=== PATIENT | female | born 1970 | race Caucasian/White ===

== ENCOUNTER → 2017-04-29 | Outpatient (CLI) | payer BC, OTHER ==
[~2017-04-29] VITALS: Ht 162.6 cm; Wt 87.3 kg
[~2017-04-29] MED LIST: ADDERALL 10 MG10 MG PO; AMITRIPTYLINE H10 M1 PO; AMPHETAMINE SAL10 MG PO; AMRIX30 MG PO; BACLOFEN; BACLOFEN 10MG T10 M1 PO; BACLOFEN 10MG T10 MG PO; BACLOFEN PO; CALCIUM; CALCIUM 1,0001 EACH PO; CAMBIA50 MG PO; CHLORZOXAZONE500 MG PO; CITRATE OF MAG296 ML PO; CLONAZEPAM 0.50.5 M1 PO; COLACE 100 MG100 MG PO; DICLOFENAC POTA50 MG PO; DOLOPHINE HCL10 MG OR; FLEXERIL PO; IMITREX 50 MG T50 M1 PO; IMITREX 50 MG T50 MG PO; LEVAQUIN 500 M500 M3 OR; METHADONE HCL 110 M1 PO; METHADONE HCL 110 MG PO; METHADOSE10 M1 PO; NORVASC5 MG PO; OXYCODONE HCL15 MG PO; OXYCONTIN CR 1010 M1 PO; PERCOCET 10-321 EACH PO; PERCOCET 5-3251 EACH PO; PERCOCET 7.5-31 EACH PO; PERCOCET PO; PHENERGAN 25 MG25 M1 PO; PHENERGAN50 MG RC; POTASSIUM20 PO; PREDNISONE 20 M20 M1 OR; REMERON15 MG PO; ROXICODONE15 M1 PO; TIZANIDINE HCL4 MG PO; VITAMIN D 5050000 I1 PO; VITAMIN D400 UNI1 PO
--- NOTE | ~2017-04-29 | HPC ---
[facility] [place] [address] PAIN MANAGEMENT CONSULTATION Name: SUNITALINZACHARIAH MARTINEZ Room #: REG Baldomero Starr#: [id number] Admission: 04/29/17 Attend Phys: Jorge Lee DO Discharge: Date of : 68 Report #: [id number] THIS REPORT FOR: //name// CC: [facility] physician/PCP Jorge Lee The patient is a 46-year-old female seen in consultation at the request of Dr. Jassi Callaway for assistance with management of chronic intractable pain. The patient had prior been seen in the pain clinic approximately 4 years ago. She returns to the pain clinic today noting multiple pain complaints, primary pain is neck, pain radiating to the posterior occiput and scapula. No specific radicular symptoms are noted. She also has ongoing pain in her back and legs. She states her left leg feels weak. She notes neck pain seems to be increased with any cervical range of motion. The patient has been managed with high dose opiates for nearly a decade. She currently takes methadone 10 mg 4 times a day, oxycodone 15 mg up to 5 tablets a day. She uses Flexeril 10 mg at bedtime, dextroamphetamine 10 mg 2 tablets in the morning, and clonazepam 0.5 b.i.d. Clonazepam is for chronic anxiety and the Adderall is for opiate-induced sedation. REVIEW OF SYSTEMS: A complete review of systems was gone over with the patient. She has chronic fibromyalgia by history. She has been worked up for some form of myotonia, multiple EMGs and labs eventually showed no specific etiology. She does complain of some right hip pain with ambulation. Remaining review of systems is noncontributory. PHYSICAL EXAMINATION: Reveals a 5 feet 4 inches, 192 pounds female, BMI is 33 kg/m2. Blood pressure 129/93, pulse is 121, respirations are 18, room air oxygen saturation 99%. Subjective pain score is 4 on a VAS with supratherapeutic opiate medication. Cervical range of motion is limited. She has trigger points in the splenius capitis bilateral, difficult to tell if this is specifically facet related pain or myofascial pain. Upper extremity strength is preserved. Heart is regular and rhythmical without murmur. Lungs are clear to auscultation. Abdomen shows a modestly endomorphic build. Rises from chair using armrest. She has pain with ambulation in the low back and right hip. Lower extremity strength is modestly diminished on the left leg compared to the right. Patellar and Achilles reflexes are symmetric. Mild tenderness in the low back over the SI and gluteus area. She does have significant pain with passive rotation of the right hip. Elis test is equivocal. DIAGNOSTIC STUDIES: There are no recent diagnostic studies available for evaluation at this time. ASSESSMENT: 1. Chronic pain syndrome requiring complex medication management in a patient [address] [address] PAIN MANAGEMENT CONSULTATION Name: ZACHARIAH MAO Room #: REG YAMILET Starr#: [id number] Admission: 04/29/17 Attend Phys: Jorge Lee DO Discharge: Date of : 68 Report #: [id number] on a supratherapeutic load of opiate. Her risk assessment score notes her to be low risk, functional assessment tool 37/70. Currently, the patient is taking roughly 265 mEq of morphine a day via her methadone 40 mg daily (roughly equivalent to 160 mg of morphine) and 75 mg of short-acting oxycodone roughly equivalent to another 105 mg of morphine equivalence. 2. Myofascial pain with trigger points in the splenius capitis. 3. Cervical spondylosis. 4. History of migraine headaches. 5. History of fibromyalgia. 6. Right hip pain, likely degenerative joint disease. 7. History of lumbar radiculopathy. 8. Opiate-induced hypersomnolence. RECOMMENDATION: Long discussion with the patient today about therapeutic options. I have been asked to take over management of her medication. I pointed out that she is at a supratherapeutic load of opiate and I suspect that she may have some issue with opiate-induced hyperalgesia and there may be some component of opiate habituation and tolerance at this point. I told her that we will continue the baseline methadone unchanged, but I would not write for the relatively higher dose of short-acting opiate, we will rotate from oxycodone 15 mg to Percocet 10/325, and limit 4 a day. I told her overall goal will be to wean off of all short acting opiates. Even at methadone 10 mg 4 times a day, she is still at a supratherapeutic load of opiate, we will try and wean this as able. This will be a slow course as she has been opiate habituated and tolerant for many years. I will somewhat reluctantly continue clonazepam 0.5 b.i.d. I have taken the liberty of writing for 60 tablets. I did tell the patient that this is not my area of expertise, but typically benzodiazepines are highly addictive and in conjunction with opiates can be problematic. Strongly recommend that she see a psychiatrist for evaluation and assistance with management for chronic anxiety. Hopefully, she can find a non-benzodiazepine anxiolytic to take on a daily basis. Trigger point injections today. We will address bilateral splenius capitis muscle groups. If this affords good relief, we will have the patient continue with icing and stretching; if this affords only nominal relief, we will need to get a newer study of the cervical spine and consider cervical facet joint injections under fluoroscopy. Follow up in 30 days to reevaluate, we will plan to do a fluoroscopic-guided right hip joint injection at that time as well. We entered into an opiate consent to treat contract with the patient today. She understands her rights and responsibilities regarding this contract to include keeping her medication safeguarded, using opiates only from one provider and one [address] [address] PAIN MANAGEMENT CONSULTATION Name: ZACHARIAH MAO Room #: REG YAMILET Starr#: [id number] Admission: 04/29/17 Attend Phys: Jorge Lee DO Discharge: Date of : 68 Report #: [id number] pharmacy. We talked about opiate risks including sedation, constipation, overdose, habituation, tolerance and opiate-induced hyperalgesia. PROCEDURE: Trigger point times 2, bilateral splenius capitis. PROCEDURE NOTE: After written and informed consent was obtained, the patient was placed in the prone position. Skin overlying the splenius capitis bilaterally was cleansed with alcohol. A 25-gauge needle was used to inject a total of 20 mg of triamcinolone plus 4 mL of 0.5% preservative-free bupivacaine into and around the 2 discrete muscle groups. [place] were removed, the area was cleansed, Band-Aids applied. The patient was monitored for an appropriate period of time, discharged in good and stable condition. Thank you for allowing me to participate in the patient's care, I will keep you abreast of her progress. <ELECTRONICALLY SIGNED> By: Jorge Lee DO 05/05/17 0938 [id number] [id number] Jorge Lee DO /nt
[2017-04-29 10:08] VITALS: BP 129/93
== END | disposition home or self-care (01) ==
LOC: PAIN 07:04
DX: M79.1 Myalgia (principal); M47.812 Spondylosis without myelopathy or radiculopathy, cervical region; G43.909 Migraine, unspecified, not intractable, without status migrainosus; M79.7 Fibromyalgia; M54.16 Radiculopathy, lumbar region; F11.982 Opioid use, unspecified with opioid-induced sleep disorder

== ENCOUNTER → 2017-06-02 | Outpatient (CLI) | payer BC, OTHER ==
[~2017-06-02] VITALS: Ht 162.6 cm; Wt 86.9 kg
[~2017-06-02] MED LIST changes: -CAMBIA50 MG PO; -DICLOFENAC POTA50 MG PO; -NORVASC5 MG PO; -PERCOCET 5-3251 EACH PO; -PERCOCET PO
--- NOTE | ~2017-06-02 | HPC ---
[facility] [place] [address] PAIN MANAGEMENT CONSULTATION Name: SUNITALINZACHARIAH MARTINEZ Room #: REG YAMILET Starr#: [id number] Admission: 06/02/17 Attend Phys: Jorge Lee DO Discharge: Date of : 68 Report #: [id number] THIS REPORT FOR: //name// CC: JESSICA physician/PCP Jorge Lee DATE OF SERVICE: 06/02/2017 The patient is a 46-year-old female whose care we recently resumed. She was seen on 04/29/2017. She had been diagnosed with chronic pain syndrome requiring complex medication management, component of fibromyalgia, cervical spondylosis, chronic headaches, and lumbar radiculopathy. On 04/29/2017, we did some trigger point injections, continued patient on methadone 10 mg q.i.d., decreased oxycodone from 15 mg four a day to Percocet 10/325 four a day. Continued clonazepam 0.5 mg b.i.d. and strongly recommend she find a psychiatrist to continue with that medication as well as her Adderall 10 mg 2 tablets daily. I did also continue Flexeril 10 mg 1-2 at bedtime for leg spasm. She returns to Pain Clinic today noting no dramatic changes were noted with the lowering of Percocet from 15 to 10. Does still rates her pain a 4 on a VAS. Primarily at night, pain is in the legs. It is chronic concern. She does note that all of her 6 children have similar symptoms of idiopathic leg spasm and aching. The patient herself notes that when she was a child, she was initially diagnosed with juvenile rheumatoid arthritis as a preteen. 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 She works at [employer] in [facility]. She is working specifically with [employer]. She states that if she continues to be active, pain seems to be a little less bothersome. PHYSICAL EXAMINATION: Today does show a 46-year-old female, BMI is 32.9 kg/m2, blood pressure is quite elevated today 169/106, pulse 120, respirations 18. We reviewed the fact that she had been in the ER about 8 months ago, in 09/2016 at [facility] for chest pain, was found to be quite hypertensive, though this resolved quickly and all diagnostic studies were negative. She was not placed on any hypertensive medications. Last visit, blood pressure is 129/93, though she was tachycardic at 121. Otherwise, she is alert and oriented to person, place and time, judged to be a reasonable historian. Rises from chair using armrest. Diffuse axial back pain. No discrete trigger points noted. Gait is tandem. Lower extremity strength is generally symmetric. We reviewed the fact that opiate medications are being used to provide analgesia adequate to support activities of daily living, not attempting to achieve a [address] [address] PAIN MANAGEMENT CONSULTATION Name: MILTONZACHARIAH CHEW Vonnie Room #: REG YAMILET Starr#: [id number] Admission: 06/02/17 Attend Phys: Jorge Lee DO Discharge: Date of : 68 Report #: [id number] specific pain score on the 0-10 Visual Analog Scale. The current opiate medications are providing sufficient analgesia to allow the patient to participate in activities of daily living. The patient is not exhibiting any aberrant behavior suggestive of drug diversion. The patient is not having any adverse reactions to medications. The patient is not suffering from daytime somnolence or mental acuity changes. The patient is managing opiate-induced constipation with appropriate skxs-bgr-dyxuumy agents and dietary considerations. The patient was counseled on concern for caution with operating a motor vehicle while using opiate medications. A physical exam was performed and the patient's functional status was evaluated. All patients with back pain were advised against the bed rest greater than 4 days and were advised to return to normal activities. Pain score assessment was noted and the treatment plan was reviewed with the patient. All current medications, both prescribed and OTC were reviewed and reconciled on the electronic medical record. Tobacco screening was accomplished and smoking cessation was advised when indicated. BMI was noted and diet/exercise modification was recommended for all patients following outside normal parameters. I reviewed with the patient today their responsibilities to safeguard prescription medications, reviewed their responsibility to utilize medications only as prescribed by the physician. They are to seek and receive pain medications only from 1 physician group ( [facility]). They are to use 1 pharmacy and keep the clinic informed if they change pharmacies. Their responsibilities include making followup visits in a timely fashion and to avoid abrupt discontinuation of medication usage. Their responsibilities further include bringing their medications (bottles from the pharmacy with residual pills) to the visit for possible confirmation of pill counts and the patient understands it is their responsibility to submit to random drug screens to ensure both that the medications prescribed are present, and that no other controlled substances are present. All prescriptions provided today were generated electronically. ASSESSMENT: Axial back pain, chronic pain syndrome requiring complex medication management, myofascial pain by history. RECOMMENDATIONS: We will continue to wean opiate analgesics. We will decrease from Percocet 10/325 to 7.5/325 today. Continue methadone unchanged at 10 mg 4 times a day. Our plan will be to decrease the Percocet 5/325 at next visit for 1 month and then decrease methadone to 10 mg t.i.d. We may increase Percocet back to 7.5 or 10/325 up to 4 a day at that time with plans to subsequently wean back the prn Percocet to 5/325. The patient is discharged in good and stable condition today. Follow up in 1 month. Again, methadone continued unchanged, Percocet decreased from 10/325 to [facility] [address] [place] [address] PAIN MANAGEMENT CONSULTATION Name: ZACHARIAH MAO Room #: REG [facility]#: [id number] Admission: 06/02/17 Attend Phys: Jorge Lee DO Discharge: Date of : 68 Report #: [id number] 7.5/325. I did continue clonazepam and Adderall and strongly encouraged the patient to follow up with psychiatrist. Given hypertension, I told her to check her blood pressure tomorrow. If it remains elevated, she will need to follow up with it generalist. She does not have a GP presently and she absolutely needs to find one. If, however, blood pressure remained elevated, she will either need to see a Walk-In Clinic or come to an Acute Care Clinic. <ELECTRONICALLY SIGNED> By: Jorge Lee DO 06/06/17 0822 [id number] [id number] Jorge Lee DO /nt
[2017-06-02 12:57] VITALS: BP 169/106
== END ==
LOC: PAIN 07:23
DX: G89.29 Other chronic pain (principal); M54.9 Dorsalgia, unspecified; Z79.899 Other long term (current) drug therapy

== ENCOUNTER → 2017-06-30 | Outpatient (CLI) | payer BC, OTHER ==
[~2017-06-30] VITALS: Ht 162.6 cm; Wt 88.7 kg
[~2017-06-30] MED LIST changes: +NORVASC5 MG PO; +PERCOCET PO
--- NOTE | ~2017-06-30 | HPC ---
[facility] [place] [address] PAIN MANAGEMENT CONSULTATION Name: ZACHARIAH MAO Room #: REG YAMILET Starr#: [id number] Admission: 06/30/17 Attend Phys: Jorge Lee DO Discharge: Date of : 68 Report #: [id number] THIS REPORT FOR: //name// CC: CAPRICE Lee HISTORY OF PRESENT ILLNESS: The patient is a 46-year-old female known to the pain clinic for some time, though she has somewhat been lost a followup for a number of years. She had prior been seen in the pain clinic back in 2013. She returns to the pain clinic most recently on 04/29/2017. She has chronic axial back pain, lumbar radiculopathy, myofascial pain, chronic headaches, chronic pain syndrome requiring complex medication management. She has been on opiate analgesics for decades. When she returned to our clinic, she was taking methadone 10 mg 4 times a day and oxycodone 15 mg up to 5 times a day. With this relatively supratherapeutic load of opiate, we have discussed a plan for weaning. She currently is down to methadone 10 mg 4 times a day (2 tablets b.i.d.). We rotated Percocet 10/325, max 4 a day and then last visit drop down to Percocet 7.5/325 four a day. The patient states that she has done well with this change. She rates her pain as 6 on a VAS. PHYSICAL EXAMINATION: GENERAL: Shows a pleasant 46-year-old female. VITAL SIGNS: BMI is 33.6 kilograms per meter squared. Blood pressure on EMR, pulse 105 and respirations 18. Subjective pain score is 6 on a VAS. MUSCULOSKELETAL: She describes pain, low back, bilateral legs. Notes weather changes and sitting seem to exacerbate pain. Rises from chair using armrest. Gait is tandem. Lower extremity strength is preserved. Diffuse tenderness across the low back. We reviewed the fact that opiate medications are being used to provide analgesia adequate to support activities of daily living, not attempting to achieve a specific pain score on the 0-10 Visual Analog Scale. The current opiate medications are providing sufficient analgesia to allow the patient to participate in activities of daily living. The patient is not exhibiting any aberrant behavior suggestive of drug diversion. The patient is not having any adverse reactions to medications. The patient is not suffering from daytime somnolence or mental acuity changes. The patient is managing opiate-induced constipation with appropriate jfus-qzo-xguyrgq agents and dietary considerations. The patient was counseled on concern for caution with operating a motor vehicle while using opiate medications. A physical exam was performed and the patient's functional status was evaluated. All patients with back pain were advised against the bed rest greater than 4 days and were advised to return to normal activities. Pain score assessment was noted and the treatment plan was reviewed with the patient. All current medications, both prescribed and OTC were reviewed and reconciled on the electronic medical record. Tobacco screening was accomplished and smoking [address] [address] PAIN MANAGEMENT CONSULTATION Name: ZACHARIAH MAO Room #: REG YAMILET Starr#: [id number] Admission: 06/30/17 Attend Phys: Jorge Lee DO Discharge: Date of : 68 Report #: [id number] cessation was advised when indicated. BMI was noted and diet/exercise modification was recommended for all patients following outside normal parameters. I reviewed with the patient today their responsibilities to safeguard prescription medications, reviewed their responsibility to utilize medications only as prescribed by the physician. They are to seek and receive pain medications only from 1 physician group ( [facility]). They are to use 1 pharmacy and keep the clinic informed if they change pharmacies. Their responsibilities include making followup visits in a timely fashion and to avoid abrupt discontinuation of medication usage. Their responsibilities further include bringing their medications (bottles from the pharmacy with residual pills) to the visit for possible confirmation of pill counts and the patient understands it is their responsibility to submit to random drug screens to ensure both that the medications prescribed are present, and that no other controlled substances are present. All prescriptions provided today were generated electronically. The patient's medication list is reconciled today. She is hypertensive and takes amlodipine. Adderall and clonazepam are prescribed by her psychiatrist. ASSESSMENT: Chronic axial back pain, myofascial pain, chronic pain syndrome with frequent headaches, requiring complex medication management. RECOMMENDATION: Continue methadone unchanged 10 mg 4 a day, we will decrease Percocet from 7.5-5/325 4 a day. I have taken the liberty of writing for 2 months of current medication. I have renewed her Flexeril, Adderall and clonazepam. She knows she needs to follow up with psychiatrist to continue those agents. We will follow up in 1 month for reevaluation. We will likely try and decrease methadone to t.i.d. I did discuss with the patient that I am leaving practice and she will need to find another health care provider. Prior, Dr. Jassi Callaway had managed her medication. May discuss going back to him or see if we can find another treating pain physician in her healthcare network. Discharged in good and stable condition. <ELECTRONICALLY SIGNED> By: Jorge Lee DO 07/04/17 0711 1619 0025 Jorge Lee DO /matthew
[2017-06-30 13:43] VITALS: BP 143/92
== END ==
LOC: PAIN 05:52
DX: G89.4 Chronic pain syndrome (principal); M54.9 Dorsalgia, unspecified; R51 Headache; Z79.899 Other long term (current) drug therapy

== ENCOUNTER → 2017-07-28 | Outpatient (CLI) | payer BC, OTHER ==
[~2017-07-28] VITALS: Ht 162.6 cm; Wt 89.4 kg
[~2017-07-28] MED LIST changes: +PERCOCET 5-3251 EACH PO
--- NOTE | ~2017-07-28 | HPC ---
[facility] [place] [address] PAIN MANAGEMENT CONSULTATION Name: ZACHARIAH MAO Room #: REG Baldomero Starr#: [id number] Admission: 07/28/17 Attend Phys: Jorge Lee DO Discharge: Date of : 68 Report #: [id number] THIS REPORT FOR: //name// CC: [employer] MERCHANT Physician staff Jorge Lee DATE OF SERVICE: 07/28/2017 The patient is a 46-year-old female, prior seen in the Pain Clinic back in 2013, somewhat lost to follow up. She returned to the Pain Clinic in April of this year. She had been titrated up to fairly high dose narcotic agents for chronic pain issues including lumbar radiculopathy without surgical intervention, chronic low back pain, component of idiopathic myalgias lower extremities. The patient was taking roughly equivalent of 270 mg morphine equivalents daily via methadone 10 mg 4 a day and oxycodone 15 mg 5 a day. Over the last couple of months, we have gradually weaned to Percocet 10 and then Percocet 7.5 and most recently, Percocet 5/325 four a day, decreasing overall opiate load to 30 mg oxycodone with 40 mg of methadone, equivalent to 205 mg of morphine equivalents. She returns to the Pain Clinic today. States she is having more muscle aches, myalgia. She does think that as weather is getting warmer that she does have a little better functional status. I started the patient on Adderall for some narcotic-induced somnolence with the hope of some analgesic synergy. As we have been weaning her opiate analgesics, I am hopeful we can wean the Adderall as well. I had strongly recommended she follow up with the psychiatrist for her anxiolytic agent (clonazepam) last visit. Unfortunately, she has yet to find a psychiatrist. She does return to the Pain Clinic today noting subjective pain score is 8 on a VAS, primarily low back and bilateral legs. She notes pain is exacerbated with weather changes and sitting. Gets some relief repositioning, heat, and medications. PHYSICAL EXAMINATION: Shows a 46-year-old female, BMI is 33.8 kg/m2. Blood pressure is modestly elevated (see EMR) pulse 116, respirations 20. She is alert and oriented to person, place and time, judged to be a reasonable historian. Rises from chair using armrest, modestly antalgic gait, diffuse tenderness across the low back. Lower extremity strength is symmetric, but modestly diminished. Medication list was reconciled. She does take amlodipine for hypertension along with Adderall, clonazepam, Flexeril, and the aforementioned Schedule II opiate analgesics methadone and Percocet 5/325. [address] [address] PAIN MANAGEMENT CONSULTATION Name: ZACHARIAH MAO Room #: REG YAMILET Starr#: [id number] Admission: 07/28/17 Attend Phys: Jorge Lee DO Discharge: Date of : 68 Report #: [id number] Long discussion with the patient today. In fact, she was seen for approximately 30 minutes in the Pain Clinic today. We would like to continue trying to wean opiate, we will gradually decrease methadone from 4, 10 mg tablets, to 3-1/2 this coming month and then 3 tablets a month (we will enable 100 tablets for 30 days to be released in 4 weeks with the goal of taking 1 tablet a day with a "rescue" fourth tablet every third day only if needed). I talked today about contacting the [facility] here at [facility] [address], Dr. Zenon Ray. Dr. Ray had made a presentation at the hospital. I am unsure if this patient can get into studies trialing cranial stimulation. She was given contact information for this possible therapeutic modality. ASSESSMENT: Chronic axial back pain, ill-defined diffuse myalgia, lumbar radiculopathy, chronic pain syndrome, headaches, requiring complex medication management. RECOMMENDATION: 1. Find a psychiatrist to manage clonazepam. 2. We will continue to wean Adderall. 3. Continue Percocet 5/325, 4 a day, unchanged. 4. Continue to wean methadone from 40 to 30 mg daily (total opiate load should decrease from 270 to 150 mg morphine equivalence from her initial presentation 04/29/2017). While we recognize this remains a supratherapeutic opiate load, it is about 55% of her presentation dose. We will likely want to keep her here for a month or 2 and see if we can continue wean, though as the colder weather comes on, she may require slight increase in overall pain medication. We will continue Flexeril unchanged 1-2 at bedtime. 5. Continue range of motion, stretching and walking. Thank you for allowing me to participate in the patient's care. She understands that I am leaving the practice area. We will have her follow up with one of the Pain physicians (Dr. Shayne Townsend does treat large number of patients with methadone. It does appear that she actually started seeing Dr. Lowell Baldwin back in 2006 or 2007. Either these providers would be reasonable). Discharged in good and stable condition after prolonged visit, greater than 50% of the 25+ minute visit was spent counseling the patient. <ELECTRONICALLY SIGNED> By: Jorge Lee DO 07/29/17 0727 [id number] Jorge Lee DO /matthew
[2017-07-28 13:27] VITALS: BP 163/98
== END ==
LOC: PAIN 06:58
DX: M54.16 Radiculopathy, lumbar region (principal); M54.5 Low back pain; G89.4 Chronic pain syndrome; R51 Headache; Z79.899 Other long term (current) drug therapy

== ENCOUNTER → 2017-12-02 | Outpatient (CLI) | payer BC, OTHER ==
[~2017-12-02] VITALS: Ht 162.6 cm; Wt 87.2 kg
[~2017-12-02] MED LIST changes: +CAMBIA50 MG PO; +DICLOFENAC POTA50 MG PO
--- NOTE | ~2017-12-02 | HPC ---
[facility] [place] [address] PAIN MANAGEMENT CONSULTATION Name: MILTONNAINAZACHARIAH Vonnie [facility]: [facility] [id number] Admission: 12/02/17 Attend Phys: Jaswinder Townsend MD Discharge: Date of : 68 Report #: [id number] THIS REPORT FOR: //name// CC: Jaswinder MERCHANT Physician staff DATE OF SERVICE: 12/02/2017 CHIEF COMPLAINT: Cambia samples were helpful. HISTORY OF PRESENT ILLNESS: The patient is a 47-year-old female who has been followed in the pain clinic. She has history of migraine headaches. 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 She continues to find that methadone is helpful. It helps with her pain. She is gainfully employed. Feels that without her medications, she would find this much more difficult assignment. Notes that the weather changes have continued to play havoc with her pain. She finds that the Adderall continues to be helpful. Feels that she is able to use her current medications at a level that she is able to think clearly and function well. Continues to work towards finding a psychiatrist. She rates her pain today as a 6/10. ALLERGIES: COMPAZINE. MEDICATIONS: Adderall 10 mg daily, Percocet 5/325 q.i.d. as needed, methadone 10 mg t.i.d., Flexeril 10 mg at bedtime, clonazepam 0.5 mg b.i.d., Norvasc 5 mg, and diclofenac potassium. PAIN CLINIC ASSESSMENT/PQRS: 1. Osteoarthritis. The patient is not being treated for osteoarthritis. The patient has been treated for juvenile arthritis. 2. Height 5 feet 4 inches, weight 192 pounds, BMI is 33. 3. Vital signs: Blood pressure 155/99, pulse 103, respiratory rate 14, room air saturation 99%. 4. Pain intensity 07/31. 5. Fall risk. The patient has not fallen in the last 3 months. 6. Blood thinner. The patient does not have a blood thinning medication. 7. Hypertension. The patient is being treated for hypertension. 8. Opioid therapy greater than 6 weeks. The patient receives all of her medications from one source, the pain clinic. 9. Risk assessment tool, low risk 2/3 for use of opioid. 10. Functional assessment tool . 11. Recreational drug use. The patient denies use of recreational drugs. 12. Tobacco: The patient has never smoked. 13. Alcohol: The patient denies [place] [address] PAIN MANAGEMENT CONSULTATION Name: ZACHARIAH MAO Room #: REG [facility]#: [id number] Admission: 12/02/17 Attend Phys: Jaswinder Townsend MD Discharge: Date of : 68 Report #: [id number] PHYSICAL EXAMINATION: GENERAL: The patient is a well-developed, well-nourished white female. Appears stated age. She is alert and oriented x 3. Speech is fluent/slow. HEENT: Normocephalic, atraumatic. Extraocular eye muscles are intact. Sclerae nonicteric. The patient is without complaints of photophobia today. She was at the last time because of a migraine headache. NECK: Without JVD or adenopathy. HEART: Regular rate, some tachycardia. LUNGS: Clear to auscultation without without rhonchi or rales. EXTREMITIES: Upper extremity muscle strength is judged to be 5/5 for the major muscle groups in the upper extremity. The patient is without significant scoliosis, kyphosis, or lordosis. Lower extremity muscle strength showed to be 5/5 in the major muscle groups. IMPRESSION: 1. Migraine headaches. 2. Low back pain with pain radiating down to the legs. 3. Juvenile arthritis with myalgias. 4. Complex medical management using opioid medications. RECOMMENDATIONS: We discussed treatment options with the patient, she felt that the diclofenac medication was somewhat helpful with her pain. We will provide the patient with diclofenac 5 mg 1 p.o. t.i.d. Hopefully, she will find that this is beneficial. She has also been given a renewal of her medications of methadone 10 mg 1 p.o. t.i.d., oxycodone 5/325 one p.o. q.i.d., cyclobenzaprine 10 mg b.i.d., Adderall 10 mg b.i.d., and clonazepam 0.5 mg b.i.d. The patient will call us if she has any problems with her medications. We would like to thank you for letting us participate in her care. We hope she continues to improve. <ELECTRONICALLY SIGNED> By: Jaswinder Townsend MD 12/05/17 1125 [id number] Jaswinder Townsend MD /matthew
[2017-12-02 11:15] VITALS: BP 155/99
== END ==
LOC: PAIN 07:06
DX: G43.909 Migraine, unspecified, not intractable, without status migrainosus (principal); M54.5 Low back pain; M08.90 Juvenile arthritis, unspecified, unspecified site; Z79.891 Long term (current) use of opiate analgesic

== ENCOUNTER → 2018-01-27 | Outpatient (CLI) | payer BC, OTHER ==
[~2018-01-27] VITALS: Ht 162.6 cm; Wt 87.5 kg
--- NOTE | ~2018-01-27 | HPC ---
[facility] [place] [address] PAIN MANAGEMENT CONSULTATION Name: MILTONNAINAZACHARIAH Room #: REG [facility] Matty#: [id number] Admission: 01/27/18 Attend Phys: Jaswinder Townsend MD Discharge: Date of : 68 Report #: [id number] THIS REPORT FOR: //name// CC: Jaswinder MERCHANT Physician staff DATE OF SERVICE: 01/27/2018 FOLLOWUP COMPLAINT: "Here for medication refill, things are going reasonably well, I am having pain in the low back and down the legs as well as headaches." FOLLOWUP HISTORY: The patient is a 47-year-old female who has been followed in the Pain Clinic. She has a history of migraine headaches. She has some idiopathic myalgias in her lower extremity. She continues to find that methadone is helpful. She continues to have pain and finds that this medication enables her to be gainfully employed and more comfortable. She is taking her medication as prescribed. She is not having any side effects. She notes that the changes in the weather continue to play havoc with her pain. She continues to use Adderall. This is helpful as well. She is thinking clearly with her medication. They are not causing any problems with her sensorium. She still is working to find a psychiatrist. She rates her pain as a 5/10 today. ALLERGIES: COMPAZINE. CURRENT MEDICATIONS: Adderall 10 mg, Percocet 5/325s one p.o. q.i.d., methadone 10 mg t.i.d., Flexeril 10 mg at bedtime, clonazepam 0.5 mg b.i.d., Norvasc 5 mg, diclofenac. PAIN CLINIC ASSESSMENT: 1. Osteoarthritis: The patient is not being treated for osteoarthritis. The patient has been treated for juvenile arthritis. 2. Height 5 feet 4 inches, weight 193 pounds, BMI is 33. 3. Vital signs: Blood pressure 151/92, pulse 93, respiratory rate 16, room air saturation 98%. 4. Pain intensity: 5/10. 5. Fall risk: The patient has not fallen in the last 3 months. 6. Blood thinner: The patient is not on a blood thinning medication. 7. Hypertension: The patient is being treated for hypertension. 8. Opioids: The patient receives her medication from one source, pain Clinic. 9. Risk assessment: Low/2 for opioid use. 10. Functional assessment tool: . 11. Recreational drug use: The patient denies use of recreational drugs. 12. Tobacco: The patient has never smoked. 13. Alcohol: The patient denies use of alcoholic beverages. [address] [address] PAIN MANAGEMENT CONSULTATION Name: MILTONNAINAZACHARIAH Vonnie Room #: REG CL Matty#: [id number] Admission: 01/27/18 Attend Phys: Jaswinder Townsend MD Discharge: Date of : 68 Report #: [id number] PHYSICAL EXAMINATION: GENERAL: The patient is a well-developed, well-nourished white female. She appears her stated age. She is alert and oriented x 3. Her speech is fluent, slightly slow. HEENT: Normocephalic, atraumatic. Extraocular eye muscles intact. Sclerae nonicteric. Mucous membranes are moist. She is not complaining of migraine headache at this juncture. NECK: Without JVD or adenopathy. HEART: Regular rate. Some tachycardia history. LUNGS: Clear to auscultation, without rhonchi or rales. EXTREMITIES: Upper extremity muscle strength is judged to be 5/5 for the major muscle groups. The patient is without significant scoliosis, kyphosis or lordosis. Lower extremity muscle strength is 5/5 without sensory changes. IMPRESSION: 1. History of migraine headaches. 2. Low back pain with pain which radiates down to legs. 3. Juvenile arthritis with myalgias. 4. Complex medical management, using opioid medications. RECOMMENDATIONS: We discussed treatment options with the patient. At this juncture, we will continue with diclofenac medication, which she finds helpful somewhat. We will also continue with her oxycodone 5/325s one p.o. q.i.d., cyclobenzaprine 10 mg b.i.d., Adderall 10 mg b.i.d., clonazepam 0.5 mg b.i.d. The patient's scripts have been written. She will call us if she has any concerns. We would like to thank you for letting us participate in her care. We hope she continues to improve. By: [id number] Jaswinder Townsend MD /matthew
[2018-01-27 11:09] VITALS: BP 151/92
== END ==
LOC: PAIN 10:29
DX: M54.5 Low back pain (principal); R51 Headache; G89.29 Other chronic pain; M79.604 Pain in right leg; M79.605 Pain in left leg; Z79.899 Other long term (current) drug therapy

== ENCOUNTER → 2018-03-31 | Outpatient (CLI) | payer BC, OTHER ==
[~2018-03-31] VITALS: Ht 162.6 cm; Wt 87.9 kg
[2018-03-31 13:03] VITALS: BP 131/74
--- NOTE | 2018-03-31 13:05 | NUR ---
Pain Clinic Assessment: 1. History of Osteoarthritis: Not Applicable History of Rheumatoid Arthritis: Not Applicable 2. Height: 5 ft. 4 in. 162.6 cm. Weight: 193.8 lb. oz. 87.907 kg. Patient's BMI: 33.2 3. Vital Signs: BP: 131/74 Pulse: 100 Resp: 16 Temp: 02 Sat: 97 ECG Mon: 4. Pain Intensity: 5 5. Fall Risk: Dizziness: N Needs help standing or walking: N Fallen in the last 3 months: N Fall risk comments: 6. Patient on Blood Thinner: None 7. History of Hypertension: Y 8. Opioid Therapy greater than 6 weeks: Y Opiate Contract Signed: 04/29/17 9. Risk Assessment Tool Provided: LOW RISK 2 10. Functional Assessment Tool: 11. Recreational Drug Use: Never Drug Type: Tobacco Use: Never Smoker Tobacco Type: Amount or Packs/day: How Many Years: Alcohol Use: No Frequency: Quant:
--- NOTE | 2018-04-05 08:13 | HPC ---
[facility] [place] [address] PAIN MANAGEMENT CONSULTATION Name: MILTONNAINAZACHARIAH A Room #: REG [facility] [id number] Admission: 03/31/18 Attend Phys: Jaswinder Townsend MD Discharge: Date of : 68 Report #: [id number] THIS REPORT FOR: //name// CC: Jaswinder PAK Physician staff DATE OF SERVICE: 03/31/2018 PRIMARY CARE PHYSICIAN: MELLISA Hunt CHIEF COMPLAINT: Here for renewal of medications. It has been cold, not been walking and exercising inside. HISTORY OF PRESENT ILLNESS: The patient is a 47-year-old female who has been followed in the pain clinic because of chronic pain. She has noted an increase in pain and discomfort. The weather is about 7 degrees this morning. She has a history of migraine headaches and feels that her medications are helpful with that. Also, has pain that is radiating down into both legs. She has had juvenile arthritis and has continued to have myalgias, which are quite problematic. She feels that her current medications are helpful. 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 She is able to think clearly with her medications. Rates her pain today as a 5/10. Notes that her medications as well as heat are helpful. She is somewhat concerned in that her children have symptomatology similar to hers. She hopes that they do not have a life of chronic pain. ALLERGIES: COMPAZINE. MEDICATIONS: Adderall 10 mg, Percocet 5 mg 1 p.o. q.i.d., methadone 10 mg 1 p.o. t.i.d., Flexeril 10 mg at bedtime, clonazepam 0.5 mg, Norvasc 5 mg, diclofenac. PAIN CLINIC ASSESSMENT: 1. Osteoarthritis. The patient is not being treated for osteoarthritis. She is being treated for rheumatoid arthritis and has for many years. 2. Height 5 feet 4 inches, weight 193 pounds, BMI is 33.2. 3. Vital Signs: Blood pressure 131/74, pulse 100, respiratory rate 16, room air saturation is 97%. 4. Pain intensity, 10. 5. Fall risk. The patient has not fallen in the last 3 months. 6. Blood thinner. The patient is not on a blood thinning medication. 7. Hypertension. The patient is being treated for hypertension. 8. Opioid greater than 6 weeks. The patient receives her medications from one source, the pain clinic. 9. Risk assessment tool, low risk [place] [address] PAIN MANAGEMENT CONSULTATION Name: ZACHARIAH MAO [id number] Admission: 03/31/18 Attend Phys: Jaswinder Townsend MD Discharge: Date of : 68 Report #: [id number] 10. Functional assessment tool, . 11. Recreational drug use. The patient denies use of recreational drugs. 12. Tobacco: The patient denies use of tobacco. 13. Alcohol: The patient denies alcoholic beverage use. PHYSICAL EXAMINATION: GENERAL: The patient is a well-developed, well-nourished, somewhat obese, white female. Appears her stated age. She is alert and oriented x 3. Her affect is appropriate. Speech is slow. HEENT: Normocephalic, atraumatic. Extraocular eye muscles intact. Sclerae nonicteric. Mucous membranes are moist. She is not complaining of migraine at this juncture. NECK: Without JVD or adenopathy. HEART: Regular rate. History of tachycardia. LUNGS: Clear to auscultation without rhonchi or rales. EXTREMITIES: Upper extremity muscle strength is judged to be 5-/5 for the major muscle groups. The patient is without significant scoliosis, kyphosis or lordosis. Does complain of lower extremity muscle discomfort with soreness in myalgias. IMPRESSION: 1. History of migraine headaches. 2. Low back pain, which radiates down into the legs. 3. Juvenile arthritis with myalgias. 4. Complex medical management using opioid medications. RECOMMENDATIONS: We discussed treatment options with the patient. We again discussed the risks and benefits of opioid use. We explained that 72,000 people last year as a result of overdoses of medication. The patient feels that her medications are helpful. Keeps them in a guarded area. States that she was not able to be near as active without the use of these medications. She has returned today and would like to have them renewed. We discussed the limitations of opioid medications as well as the benefits. She will call us if she has any concerns. A script for her medications have been rewritten. <ELECTRONICALLY SIGNED> By: Jaswinder Townsend MD 04/05/18 0813 [id number] Jaswinder Townsend MD /DORIAN
== END ==
LOC: PAIN 07:21
DX: G43.909 Migraine, unspecified, not intractable, without status migrainosus (principal); M08.80 Other juvenile arthritis, unspecified site; M79.18 Myalgia, other site; M54.5 Low back pain; Z79.899 Other long term (current) drug therapy; Z79.891 Long term (current) use of opiate analgesic

== ENCOUNTER → 2018-05-26 | Outpatient (CLI) | payer BC, OTHER ==
[~2018-05-26] VITALS: Ht 162.6 cm; Wt 88.5 kg
[~2018-05-26] MED LIST changes: +ZANAFLEX4 MG PO
[2018-05-26 09:42] VITALS: BP 159/94
--- NOTE | 2018-05-26 09:53 | NUR ---
Pain Clinic Assessment: 1. History of Osteoarthritis: Not Applicable History of Rheumatoid Arthritis: Not Applicable 2. Height: 5 ft. 4 in. 162.6 cm. Weight: 195.0 lb. oz. 88.452 kg. Patient's BMI: 33.5 3. Vital Signs: BP: 159/94 Pulse: 91 Resp: 16 Temp: 02 Sat: 100 ECG Mon: 4. Pain Intensity: 3 5. Fall Risk: Dizziness: Y Needs help standing or walking: N Fallen in the last 3 months: N Fall risk comments: 6. Patient on Blood Thinner: None 7. History of Hypertension: Y 8. Opioid Therapy greater than 6 weeks: Y Opiate Contract Signed: 04/29/17 9. Risk Assessment Tool Provided: LOW RISK 2 10. Functional Assessment Tool: 11. Recreational Drug Use: Never Drug Type: Tobacco Use: Never Smoker Tobacco Type: Amount or Packs/day: How Many Years: Alcohol Use: No Frequency: Quant:
--- NOTE | 2018-05-29 11:39 | HPC ---
[facility] [place] [address] PAIN MANAGEMENT CONSULTATION Name: ZACHARIAH MAO Vonnie [facility] [id number] Admission: 05/26/18 ������������������ Attend Phys: Yani Hall Discharge: ������������������ Date of : 68 Report #: [id number] THIS REPORT FOR: //name// CC: Yani [facility] Physician staff DATE OF SERVICE: 05/26/2018 CHIEF COMPLAINT: Chronic low back pain and migraine headaches. HISTORY OF PRESENT ILLNESS: This is a 47-year-old female who returns to the pain clinic today for refill of her medications. She tells me that the methadone is very helpful in controlling her pain. She rates her pain today at 3/10. She finds that she has decreased her hydrocodone, breakthrough pain medicine not needing as much since the methadone is so helpful. She does also tell me that the diclofenac potassium does help her migraines that she suffers with. When she feels one coming on, she takes 1-2 of those tablets and that usually prevents her from having a migraine. The patient would like refills of these medications today. She tells me that she is not having any problems with constipation or daytime sleepiness. ALLERGIES: COMPAZINE. CURRENT MEDICATIONS: Oxycodone 5/325 up to 4 times a day, methadone 10 mg 3 times a day, diclofenac potassium 3 times a day as needed, clonazepam 0.5 mg b.i.d. and amlodipine 5 mg daily. PQRS: 1. The patient is not being treated for osteoarthritis. She is being treated for rheumatoid arthritis currently and sees block trimmer. 2. Height is 5 feet 4 inches, weight is 195, BMI is 33. 3. Vital signs: 159/94, pulse is 91, respirations 16, oxygen sat 100, pain score is 3/10. 4. Fall risk. Does have some dizziness, does not need help walking or standing, has not fallen in 3 months. 5. The patient is not on any blood thinner, does take medicines for hypertension. 6. Opioid therapy is greater than 6 weeks. Therefore an opioid signed contract is on the chart. Her risk assessment tool is low. Her functional assessment is 37/70. 7. Recreational drug use, she denies smoking. Does not use recreational drug or does not drink alcohol. We did check the prescription monitoring system. The patient is filling her methadone and oxycodone from Dr. Townsend as well as her [address] [address] PAIN MANAGEMENT CONSULTATION Name: ZACHARIAH MAO Room #: REG YAMILET Starr#: [id number] Admission: 05/26/18 ������������������ Attend Phys: Yani Hall Discharge: ������������������ Date of : 68 Report #: [id number] clonazepam. She tells me she safeguards her medicines at all times. We will check a drug screen on her next visit. The last one has been greater than one year. PHYSICAL EXAMINATION: GENERAL: This is a well-developed, well-nourished, slightly obese white female who appears her stated age. She is alert and orientated x 3. HEENT: Normocephalic, atraumatic. Extraocular eye muscles are intact. Sclerae nonicteric. Mucous membranes are moist. EXTREMITIES: Upper extremity strength judged to be 5/5 for all major muscle groups. The patient is without significant scoliosis, kyphosis or lordosis. She does complain of some lower back discomfort that does not radiate down her legs currently. IMPRESSION: 1. History of migraine headache. 2. Low back pain. 3. Juvenile arthritis with myalgias. 4. Complex medical management using opioid medications. We reviewed the fact that opiate medications are being used to provide analgesia adequate to support activities of daily living, not attempting to achieve a specific pain score on the 0-10 Visual Analog Scale. The current opiate medications are providing sufficient analgesia to allow the patient to participate in activities of daily living. The patient is not exhibiting any aberrant behavior suggestive of drug diversion. The patient is not having any adverse reactions to medications. The patient is not suffering from daytime somnolence or mental acuity changes. The patient is managing opiate-induced constipation with appropriate qicw-vyf-wuijtid agents and dietary considerations. The patient was counseled on concern for caution with operating a motor vehicle while using opiate medications. A physical exam was performed and the patient's functional status was evaluated. All patients with back pain were advised against the bed rest greater than 4 days and were advised to return to normal activities. Pain score assessment was noted and the treatment plan was reviewed with the patient. All current medications, both prescribed and OTC were reviewed and reconciled on the electronic medical record. Tobacco screening was accomplished and smoking cessation was advised when indicated. BMI was noted and diet/exercise modification was recommended for all patients following outside normal parameters. I reviewed with the patient today their responsibilities to safeguard prescription medications, reviewed their responsibility to utilize medications only as prescribed by the physician. They are to seek and receive pain medications only from 1 physician group ([facility]). They are to use [address] [address] PAIN MANAGEMENT CONSULTATION Name: ZACHARIAH MAO Room #: REG YAMILET Starr#: [id number] Admission: 05/26/18 ������������������ Attend Phys: Yani Hall Discharge: ������������������ Date of : 68 Report #: [id number] pharmacy and keep the clinic informed if they change pharmacies. Their responsibilities include making followup visits in a timely fashion and to avoid abrupt discontinuation of medication usage. Their responsibilities further include bringing their medications (bottles from the pharmacy with residual pills) to the visit for possible confirmation of pill counts and the patient understands it is their responsibility to submit to random drug screens to ensure both that the medications prescribed are present, and that no other controlled substances are present. All prescriptions provided today were generated electronically. PLAN: 1. We discussed treatment options with this patient today. The patient tells me that her methadone is very helpful in controlling her pain. In fact, she is finding that she does not need oxycodone as frequently. Therefore, it was decided that she reduce it from 120 pills to 90 pills a month. This will also decrease her morphine milliequivalents according to the CDC guidelines. Methadone has a high conversion factor placing her with her 3 tablets a day at 90 already, then with her oxycodone she was at 120. We will decrease her morphine milliequivalent slightly by decreasing the oxycodone use. It may be beneficial in the future to decrease again if she continues to do well, getting as closer to the 90 morphine milliequivalent goal that CDC has put out there. 2. The patient does complain of increasing muscle problems and difficulty falling asleep. She had tried Flexeril in the past that was not helpful. We will give her a trial of tizanidine 4 mg tablets. The patient to take 1-2 tablets at bedtime to see if this is beneficial. If not, she may ask her primary care doctor for a sleeping medication. It is not the practice at this office to give sleeping pills to patients. The patient is agreeable with this trial and will let us know how it works. 3. Scripts also given today for diclofenac potassium #90, with one additional refill and clonazepam 0.5 mg #60 with one additional refill. 4. The patient will be seen in 2 months' time period. The patient seen with Dr. Townsend who also collaborating care today. ��������������������������������������������� <ELECTRONICALLY SIGNED> ���������������������������������������� By: Yani Hall ��������������������������������������������� 05/29/18 1139 [id number] Yani Hall /nt
== END ==
LOC: PAIN 06:56
DX: M08.90 Juvenile arthritis, unspecified, unspecified site (principal); M79.10 Myalgia, unspecified site; M54.5 Low back pain; G43.909 Migraine, unspecified, not intractable, without status migrainosus; Z79.891 Long term (current) use of opiate analgesic; Z79.899 Other long term (current) drug therapy

== ENCOUNTER → 2018-07-26 | Outpatient (CLI) | payer BC, OTHER ==
[~2018-07-26] VITALS: Ht 162.6 cm; Wt 88.5 kg
[~2018-07-26] MED LIST changes: +DICLOFENAC SOD50 M1 PO
[2018-07-26 09:26] VITALS: BP 153/87
--- NOTE | 2018-07-26 09:39 | NUR ---
Pain Clinic Assessment: 1. History of Osteoarthritis: Not Applicable History of Rheumatoid Arthritis: Not Applicable 2. Height: 5 ft. 4 in. 162.6 cm. Weight: 195.0 lb. oz. 88.452 kg. Patient's BMI: 33.5 3. Vital Signs: BP: 153/87 Pulse: 97 Resp: 16 Temp: 02 Sat: 97 ECG Mon: 4. Pain Intensity: 6 5. Fall Risk: Dizziness: N Needs help standing or walking: N Fallen in the last 3 months: N Fall risk comments: 6. Patient on Blood Thinner: None 7. History of Hypertension: Y 8. Opioid Therapy greater than 6 weeks: Y Opiate Contract Signed: 04/29/17 9. Risk Assessment Tool Provided: LOW RISK 2 10. Functional Assessment Tool: 11. Recreational Drug Use: Never Drug Type: Tobacco Use: Never Smoker Tobacco Type: Amount or Packs/day: How Many Years: Alcohol Use: No Frequency: Quant:
--- NOTE | 2018-07-27 08:00 | HPC ---
[facility] [address] [address] PAIN MANAGEMENT CONSULTATION Name: SUNITALINZACHARIAH MARTINEZ Room #: REG [facility] Matty#: [id number] Admission: 07/26/18 ������������������ Attend Phys: Yani Hall Discharge: ������������������ Date of : 68 Report #: [id number] THIS REPORT FOR: //name// CC: Yani MERCHANT Physician staff DATE OF SERVICE: 07/26/2018 CHIEF COMPLAINT: Chronic low back pain and migraine headaches. HISTORY OF PRESENT ILLNESS: This is a pleasant 47-year-old female who returns to the pain clinic today for refill of her medications. She tells me that the methadone is helpful in controlling her pain. She is unsure that she is getting as much relief of her oxycodone, her breakthrough pain medicine, as she had in the past, rating her pain score a 6/10 today, that she has been also having daily migraine headaches because her diclofenac potassium has been on backorder that she uses for her migraines and so this has been making her pain worse as well. She tells me that the weather has been playing a factor in her migraines too. She was wondering about possibly changing her breakthrough pain medicines or wondering if we had alternatives for her today. Her pain is worse with sitting and the weather in her lower back as well as the headache. Heating pads are helpful in controlling some of her low back pain as well as the methadone. She does use lyjh-rvr-qzmtejt medications for constipation issues. ALLERGIES: COMPAZINE. CURRENT LIST OF MEDICATIONS: Tizanidine 4 mg 2 tablets at bedtime, diclofenac potassium 50 mg 3 times a day as needed, oxycodone 5/325 p.r.n., methadone 10 mg 3 times a day, clonazepam 0.5 mg b.i.d. and amlodipine 5 mg daily. PQRS: 1. The patient is not being treated for osteoarthritis and is seeing a senior policy associate for rheumatoid arthritis. 2. Height is 5 feet 4 inches, weight is 195, BMI is 33. 3. Vital signs: 153/87, pulse is 97, respirations 16, oxygen sat is 97%. 4. Pain score 6/10. 5. Fall risk, denies dizziness. Does not need any help walking or standing. Has not fallen in the last 3 months. 6. The patient is not on any blood thinners, does take medicine for hypertension. 7. Opioid therapy is greater than 6 weeks; therefore, an opioid signed contract is on the chart. A risk assessment tool is low. Functional assessment is 37/70. 8. Recreational drug use, she denies. She is not a smoker and [place] [address] PAIN MANAGEMENT CONSULTATION Name: ZACHARIAH MAO Room #: REG YAMILET Starr#: [id number] Admission: 07/26/18 ������������������ Attend Phys: Yani Hall Discharge: ������������������ Date of : 68 Report #: [id number] We did check the prescription monitoring system. The patient is filling appropriately for her medications and we will check a random drug screen on her today. The patient tells me she does safeguard her medications. PHYSICAL EXAMINATION: GENERAL: This is a well-developed, well-nourished, slightly obese white female who appears her stated age. Placing her pain score today at 6/10. She is alert and oriented. HEENT: Normocephalic, atraumatic. Extraocular eye muscles are intact. Mucous membranes are moist. EXTREMITIES: Upper extremity strength judged to be 5/5 in all major muscle groups. She is without significant scoliosis, kyphosis, lordosis. Complains of lower back tenderness in her lumbar region that does radiate down her bilateral legs to her ankles. She also does complain of headache today, generalized all over her head. ASSESSMENT: 1. History of migraine headaches. 2. Low back pain. 3. Juvenile arthritis with myalgias. 4. Complex medical management under terms of written opioid agreement. We reviewed the fact that opiate medications are being used to provide analgesia adequate to support activities of daily living, not attempting to achieve a specific pain score on the 0-10 Visual Analog Scale. The current opiate medications are providing sufficient analgesia to allow the patient to participate in activities of daily living. The patient is not exhibiting any aberrant behavior suggestive of drug diversion. The patient is not having any adverse reactions to medications. The patient is not suffering from daytime somnolence or mental acuity changes. The patient is managing opiate-induced constipation with appropriate fbtj-nmg-wvucxbg agents and dietary considerations. The patient was counseled on concern for caution with operating a motor vehicle while using opiate medications. A physical exam was performed and the patient's functional status was evaluated. All patients with back pain were advised against the bed rest greater than 4 days and were advised to return to normal activities. Pain score assessment was noted and the treatment plan was reviewed with the patient. All current medications, both prescribed and OTC were reviewed and reconciled on the electronic medical record. Tobacco screening was accomplished and smoking cessation was advised when indicated. BMI was noted and diet/exercise modification was recommended for all patients following outside normal parameters. I reviewed with the patient today their responsibilities to safeguard [address] [address] PAIN MANAGEMENT CONSULTATION Name: ZACHARIAH MAO Room #: REG [facility]#: [id number] Admission: 07/26/18 ������������������ Attend Phys: Yani Hall Discharge: ������������������ Date of : 68 Report #: [id number] prescription medications, reviewed their responsibility to utilize medications only as prescribed by the physician. They are to seek and receive pain medications only from 1 physician group ( [facility]). They are to use 1 pharmacy and keep the clinic informed if they change pharmacies. Their responsibilities include making followup visits in a timely fashion and to avoid abrupt discontinuation of medication usage. Their responsibilities further include bringing their medications (bottles from the pharmacy with residual pills) to the visit for possible confirmation of pill counts and the patient understands it is their responsibility to submit to random drug screens to ensure both that the medications prescribed are present, and that no other controlled substances are present. All prescriptions provided today were generated electronically. PLAN: 1. We discussed treatment options with the patient today. The patient had been stable on the diclofenac potassium that helped with her migraines for quite some time, that medication has been on backorder. She was able to find a few pills that she has been able to take in the last 2 months since her last visit, but has been having daily migraines as a result of not having this medication. I discussed treatment options with Drs in the clinic. The patient has tried Imitrex in the past that made her sick to her stomach. She believes Relpax she was also taken, though she could not remember if that was the medication that caused some nerve twitching in her legs. She has not tried Topamax, which may be an alternative to try in the future, but currently, we decided to try diclofenac sodium 50 mg tablets daily up to 3 times a day if she needs it. This is also a good nonsteroidal that may help with some of her general malaise, that may help her headaches since the diclofenac potassium was helpful. The patient states she is willing to try. Scripts given for #90 with one additional refill. 2. The patient tells me that she does not feel that her breakthrough pain medicine is as helpful as it was. I explained to her it could be because she has not been able to take her anti-inflammatory and we will see if this does help her pain decrease some with that new medicine added. Also, I explained to her she could alter her methadone dose slightly by taking one, then one and a half and then half a tablet a day, still her 3 tablets a day, but just altering when she does take them. She verbalizes understanding and no changes made in her narcotic levels today. Scripts given today. 3. Scripts given for methadone 10 mg 3 times a day, #90, for today and 4-week and oxycodone 5/325, #90, t.i.d. as well as clonazepam 0.5 mg b.i.d., #60, for 2 months. This places the patient at the high level of morphine milliequivalents at 112 or 120 per day well above the CDC guidelines; therefore, we will continue to monitor her closely every [address] [address] PAIN MANAGEMENT CONSULTATION Name: ZACHARIAH MAO Room #: HERLINDA Starr#: [id number] Admission: 07/26/18 ������������������ Attend Phys: Yani Hall Discharge: ������������������ Date of : 68 Report #: [id number] Shayne Townsend did come and see the patient today in collaborative care and is agreeable with the switch to diclofenac today. ��������������������������������������������� <ELECTRONICALLY SIGNED> ���������������������������������������� By: Yani Hall ��������������������������������������������� 07/27/18 0800 1149 0538 Yani Hall /matthew
== END ==
LOC: PAIN 06:47
DX: M54.5 Low back pain (principal); G89.29 Other chronic pain; G43.909 Migraine, unspecified, not intractable, without status migrainosus; I10 Essential (primary) hypertension; M06.9 Rheumatoid arthritis, unspecified; M19.90 Unspecified osteoarthritis, unspecified site; Z88.8 Allergy status to other drugs, medicaments and biological substances; Z79.899 Other long term (current) drug therapy; Z79.891 Long term (current) use of opiate analgesic

== ENCOUNTER → 2018-09-22 | Outpatient (CLI) | payer BC, OTHER ==
[~2018-09-22] VITALS: Ht 165.1 cm; Wt 88.0 kg
[~2018-09-22] MED LIST changes: +NEURONTIN 300300 M1 PO
[2018-09-22 09:30] VITALS: BP 145/87
--- NOTE | 2018-09-22 09:33 | NUR ---
Pain Clinic Assessment: 1. History of Osteoarthritis: Not Applicable History of Rheumatoid Arthritis: Not Applicable 2. Height: 5 ft. 5 in. 165.1 cm. Weight: 194.0 lb. oz. 87.998 kg. Patient's BMI: 32.3 3. Vital Signs: BP: 145/87 Pulse: 110 Resp: 15 Temp: 02 Sat: 100 ECG Mon: 4. Pain Intensity: 7 5. Fall Risk: Dizziness: N Needs help standing or walking: N Fallen in the last 3 months: N Fall risk comments: 6. Patient on Blood Thinner: None 7. History of Hypertension: Y 8. Opioid Therapy greater than 6 weeks: Y Opiate Contract Signed: 04/29/17 9. Risk Assessment Tool Provided: LOW RISK 2 10. Functional Assessment Tool: 11. Recreational Drug Use: Never Drug Type: Tobacco Use: Never Smoker Tobacco Type: Amount or Packs/day: How Many Years: Alcohol Use: No Frequency: Quant:
--- NOTE | 2018-09-27 17:05 | HPC ---
[facility] [place] [address] [address] [place] [address] PAIN MANAGEMENT CONSULTATION Name: MILTONNAINAZACHARIAH Vonnie Room #: REG YAMILET Matty#: [id number] Admission: 09/22/18 ������������������ Attend Phys: Jaswinder Townsend MD Discharge: ������������������ Date of : 68 Report #: [id number] THIS REPORT FOR: //name// CC: Jaswinder MERCHANT Physician staff DATE OF SERVICE: 09/22/2018 CHIEF COMPLAINT: Here for medications. HISTORY: The patient is a 47-year-old female who has been followed in the pain clinic because of chronic pain. As you may recall, she has pain in the low back area. She also complains of chronic migraine headaches. Pain today continues to radiate down into both legs. She has had juvenile arthritis and continues to have a number of myalgias. 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 She is able to think clearly with her medications. She has returned today with hopes of renewing her medications. The patient is quite despondent. Her 26-year-old son committed suicide 5 weeks ago. She is still feeling the of emotions of this tragedy. ALLERGIES: COMPAZINE. CURRENT MEDICATIONS: Tizanidine 4 mg 2 tablets at bedtime, diclofenac potassium 50 mg t.i.d., oxycodone 5/325, methadone 10 mg t.i.d., clonazepam 0.5 mg b.i.d., and amlodipine 5 mg daily. PAIN CLINIC ASSESSMENT AND PQRS: 1. The patient is not being treated for osteoarthritis or rheumatoid arthritis. 2. Height 5 feet 5 inches, weight 194 pounds, BMI is 32.2. 3. Vital signs: Blood pressure 145/110, respiratory rate 15, room air saturations 100%. 4. Pain intensity, 10. 5. Fall history: The patient has not fallen in the last 3 months. 6. Blood thinner. The patient is not taking a blood thinner. 7. Hypertension. The patient is being treated for hypertension. 8. Opioids greater than 6 weeks. The patient receives medication from one source the pain clinic. 9. Risk assessment tool, low for opioid use. 10. Functional assessment tool . 11. Recreational drug use. The patient denies. 12. Tobacco: The patient has never smoked. 13. Alcohol: The patient denies frequent use of alcoholic beverages. PHYSICAL EXAMINATION: [facility] [address] [place] [address] PAIN MANAGEMENT CONSULTATION Name: ZACHARIAH MAO Vonnie Room #: REG [facility] Matty#: [id number] Admission: 09/22/18 ������������������ Attend Phys: Jaswinder Townsend MD Discharge: ������������������ Date of : 68 Report #: [id number] GENERAL: The patient is a well-developed, well-nourished, somewhat obese white female, appears her stated age. She is alert and oriented x 3. Her affect is appropriate. Speech is fluent. HEENT: Normocephalic, atraumatic. Extraocular eye muscles intact. The patient is suffering from a migraine headache today. Has the usual migraine pain in the usual areas. NECK: Without adenopathy or JVD. Does have some pain involving the neck area. HEART: Regular rate. ABDOMEN: Nontender. EXTREMITIES: Upper extremity muscle strength judged to be 5/5 for the major muscle groups in the upper extremity. The patient does have some complaints of pain in the lower portion of her back. Pain radiates down into both her legs and her ankles. ASSESSMENT: 1. History of migraine headaches. 2. History of low back pain. 3. Juvenile arthritis with myalgias. 4. Complex medical management using opioids to help control the pain. RECOMMENDATION: The patient states that she continues to have pain, which is still quite problematic. At this point, she would like to request that we review her medications, see whether or not there was some latitude to increase her opioid use. We reviewed the use of her medications. Her opioid level is above 90. We explained that we could not go to 4 tablets of methadone. We will continue with her current medical regimen as it is. She does not recall using gabapentin. We will start her on gabapentin 300 mg and slowly titrate this to a level of at least 1800 to see whether or not she would benefit from this. She will call us if she has any concerns regarding the new medication. A script for her medications have been written. She will continue with gabapentin 300 mg 1 p.o. t.i.d. to be titrated. Clonazepam 0.5 mg p.o. b.i.d., diclofenac 50 mg b.i.d., tizanidine at bedtime, and methadone 10 mg 1 p.o. q. 8 hours. We would like to thank you for letting us participate in her care. We have indeed expressed our sorrow at the patient's loss of her 26-year-old loved one. ��������������������������������������������� <ELECTRONICALLY SIGNED> ���������������������������������������� By: Jaswinder Townsend MD ��������������������������������������������� 09/27/18 1705 1528 0040 Jaswinder Townsend MD /nt
== END ==
LOC: PAIN 06:42
DX: M54.5 Low back pain (principal); G43.909 Migraine, unspecified, not intractable, without status migrainosus; M08.90 Juvenile arthritis, unspecified, unspecified site; Z88.8 Allergy status to other drugs, medicaments and biological substances; Z79.899 Other long term (current) drug therapy; Z79.891 Long term (current) use of opiate analgesic

== ENCOUNTER → 2018-11-15 | Outpatient (CLI) | payer BC, OTHER ==
[~2018-11-15] VITALS: Ht 165.1 cm; Wt 89.4 kg
[~2018-11-15] MED LIST changes: +DICLOFENAC SODI50 MG PO; +NEURONTIN 300M300 M2 PO
[2018-11-15 13:21] VITALS: BP 157/86
--- NOTE | 2018-11-15 13:24 | NUR ---
Pain Clinic Assessment: 1. History of Osteoarthritis: Not Applicable History of Rheumatoid Arthritis: Not Applicable 2. Height: 5 ft. 5 in. 165.1 cm. Weight: 197.0 lb. oz. 89.359 kg. Patient's BMI: 32.8 3. Vital Signs: BP: 157/86 Pulse: 75 Resp: 18 Temp: 02 Sat: 99 ECG Mon: 4. Pain Intensity: 5 5. Fall Risk: Dizziness: N Needs help standing or walking: N Fallen in the last 3 months: N Fall risk comments: 6. Patient on Blood Thinner: None 7. History of Hypertension: Y 8. Opioid Therapy greater than 6 weeks: Y Opiate Contract Signed: 04/29/17 9. Risk Assessment Tool Provided: LOW RISK 2 10. Functional Assessment Tool: 11. Recreational Drug Use: Never Drug Type: Tobacco Use: Never Smoker Tobacco Type: Amount or Packs/day: How Many Years: Alcohol Use: No Frequency: Quant:
--- NOTE | 2018-11-16 11:31 | HPC ---
[facility] [address] [place] [place] [address] PAIN MANAGEMENT CONSULTATION Name: MILTONNAINAZACHARIAH Room #: REG [facility] Matty#: [id number] Admission: 11/15/18 Attend Phys: Yani Hall Discharge: Date of : 68 Report #: [id number] THIS REPORT FOR: //name// CC: Yani MERCHANT Physician staff DATE OF SERVICE: 11/15/2018 CHIEF COMPLAINT: Chronic low back pain and chronic migraine headaches. HISTORY OF PRESENT ILLNESS: This is a 48-year-old female who returns to the pain clinic today for followup for her medications. She suffers from low back pain as well as chronic migraine headaches. She reports today a pain score of 5/10. She feels that her medications are helping control most of her pain, enabling her to work and care for her families without much difficulty. She feels that her migraines have calmed down slightly and has been using diclofenac sodium in place of the potassium and finds that that is helpful while the other is on backorder. She reports a dull aching pain that is worse with weather changes and prolonged sitting, but her medication and heat are very beneficial. She denies much constipation issues as long as she takes Colace on a regular basis. She has been busy caring for her family this summer since her recent son in the beginning of summer. She tells me that it has been an adjustment and struggle to get through some days, but she feels that each day as passes, she is slowly recovering slightly. Today, the patient would like a refill of her medications. ALLERGIES: COMPAZINE. CURRENT LIST OF MEDICATIONS: Gabapentin 300 mg t.i.d., tizanidine 4 mg 1-2 at bedtime, oxycodone 5/325 p.r.n., methadone 10 mg t.i.d., diclofenac sodium, clonazepam 0.5 mg b.i.d. and amlodipine 5 mg daily. PQRS: 1. The patient is not being treated for osteoarthritis. Rheumatoid arthritis, yes. 2. Height is 5 feet 5 inches, weight is 197. 3. Vital signs: Blood pressure 157/86, pulse is 75, respirations 18, oxygen sat is 99. 4. Pain score is 5/10. 5. Denies dizziness, does not need help walking or standing, has not fallen in the last 3 months. 6. The patient is not on any blood thinners, but does take medicine for hypertension. 7. Opioid therapy is greater than 6 weeks; therefore, an opioid signed contract is on the chart. Risk assessment tool is low. Functional assessment is 37/70. [place] [address] PAIN MANAGEMENT CONSULTATION Name: MILTONNAINAZACHARIAH Room #: REG YAMILET Starr#: [id number] Admission: 11/15/18 Attend Phys: Yani Hall Discharge: Date of : 68 Report #: [id number] 8. Recreational drug use, she denies. She is not a smoker and does not drink alcohol. According to the prescription monitoring system, the patient is filling appropriately for her medications in a timely fashion. There is a drug screen on the chart that is appropriate for her medications. PHYSICAL EXAMINATION: GENERAL: This is a well-developed, well-nourished, well-hydrated, slightly obese white female who appears her stated age, placing her current pain score at 5/10. HEENT: Normocephalic, atraumatic. Extraocular eye muscles are intact. NECK: Without adenopathy or JVD. She does have slight tenderness in her base of her neck. MUSCULOSKELETAL: Upper extremity strength is judged to be 5/5 for all major muscle groups. The patient has complaints of lower lumbar back pain that radiates into her bilateral legs to her ankles. No swelling or edema noted in her legs. ASSESSMENT: 1. History of low back pain. 2. Juvenile arthritis with myalgias. 3. History of migraine headaches. 4. Complex medical management under terms of written opioid agreement. We reviewed the fact that opiate medications are being used to provide analgesia adequate to support activities of daily living, not attempting to achieve a specific pain score on the 0-10 Visual Analog Scale. The current opiate medications are providing sufficient analgesia to allow the patient to participate in activities of daily living. The patient is not exhibiting any aberrant behavior suggestive of drug diversion. The patient is not having any adverse reactions to medications. The patient is not suffering from daytime somnolence or mental acuity changes. The patient is managing opiate-induced constipation with appropriate rrka-dyt-blwbznm agents and dietary considerations. The patient was counseled on concern for caution with operating a motor vehicle while using opiate medications. A physical exam was performed and the patient's functional status was evaluated. All patients with back pain were advised against the bed rest greater than 4 days and were advised to return to normal activities. Pain score assessment was noted and the treatment plan was reviewed with the patient. All current medications, both prescribed and OTC were reviewed and reconciled on the electronic medical record. Tobacco screening was accomplished and smoking cessation was advised when indicated. BMI was noted and diet/exercise modification was recommended for all patients following outside normal parameters. I reviewed with the patient today their responsibilities to [address] [address] PAIN MANAGEMENT CONSULTATION Name: ZACHARIAH MAO [id number] Admission: 11/15/18 Attend Phys: Yani Hall Discharge: Date of : 68 Report #: [id number] prescription medications, reviewed their responsibility to utilize medications only as prescribed by the physician. They are to seek and receive pain medications only from 1 physician group ( [facility]). They are to use 1 pharmacy and keep the clinic informed if they change pharmacies. Their responsibilities include making followup visits in a timely fashion and to avoid abrupt discontinuation of medication usage. Their responsibilities further include bringing their medications (bottles from the pharmacy with residual pills) to the visit for possible confirmation of pill counts and the patient understands it is their responsibility to submit to random drug screens to ensure both that the medications prescribed are present, and that no other controlled substances are present. All prescriptions provided today were generated electronically. PLAN: 1. We discussed treatment options with the patient today. The patient is on a fairly high opioid dose per the CDC guidelines. We did discuss trying to taper this medication to 10 mg in the morning, 5 mg midday and 10 mg at night then we would drop another 5 mg to continue to lower her methadone dose that would greatly decrease her morphine milliequivalent number. The patient feels that she may be able to try this in the next few months, though wintertime is approaching and she is reluctant to decrease during that time. I explained to her if she decreases now, the weather will not be cold for several more months and her body will have time to adjust. She verbalizes understanding and will try to decrease before her next visit. 2. Scripts given today for oxycodone 5/325, #90, for today and 4-week release; methadone 10 mg, #90, for today and 4-week release; clonazepam 0.5 mg, #60, with 1 additional refill; tizanidine 4 mg, #60, with no refills; and diclofenac 50 mg t.i.d., #90, with no additional refills. 3. We did discuss gabapentin use in depth. The patient is currently taking 900 mg at bedtime. She feels like she is sleeping better and her legs feel less tired and achy throughout the day. I encouraged her to try and split the dose to one 300-mg tablet midday while she is working and 2 at bedtime to see if this helps get her through some of her difficult part of her day. If she finds this beneficial but is starting to not sleep as well and having more problems at bedtime, she can call our office and we will increase this to 4 tablets a day, taking 1 midday and [address] Townsend did see the patient and collaborated care today. The patient will return in 2 months. <ELECTRONICALLY SIGNED> By: Yani Hall 11/16/18 1131 [id number] Yani Hall /nt
== END ==
LOC: PAIN 07:11
DX: M54.5 Low back pain (principal); G89.29 Other chronic pain; G43.909 Migraine, unspecified, not intractable, without status migrainosus; Z79.899 Other long term (current) drug therapy; Z79.891 Long term (current) use of opiate analgesic

== ENCOUNTER → 2019-01-17 | Outpatient (CLI) | payer BC, OTHER ==
[~2019-01-17] VITALS: Ht 165.1 cm; Wt 87.0 kg
[2019-01-17 09:57] VITALS: BP 156/92
--- NOTE | 2019-01-17 10:08 | NUR ---
Pain Clinic Assessment: 1. History of Osteoarthritis: Not Applicable History of Rheumatoid Arthritis: Not Applicable 2. Height: 5 ft. 5 in. 165.1 cm. Weight: 191.8 lb. oz. 87.000 kg. Patient's BMI: 31.9 3. Vital Signs: BP: 156/92 Pulse: 83 Resp: 16 Temp: 02 Sat: 100 ECG Mon: 4. Pain Intensity: 5 5. Fall Risk: Dizziness: N Needs help standing or walking: N Fallen in the last 3 months: N Fall risk comments: 6. Patient on Blood Thinner: None 7. History of Hypertension: Y 8. Opioid Therapy greater than 6 weeks: Y Opiate Contract Signed: 04/29/17 9. Risk Assessment Tool Provided: LOW RISK 2 10. Functional Assessment Tool: 11. Recreational Drug Use: Never Drug Type: Tobacco Use: Never Smoker Tobacco Type: Amount or Packs/day: How Many Years: Alcohol Use: No Frequency: Quant:
--- NOTE | 2019-01-22 09:16 | HPC ---
[facility] [place] [address] PAIN MANAGEMENT CONSULTATION Name: MAYCOZACHARIAH Vonnie [facility] [id number] Admission: 01/17/19 Attend Phys: Yani Hall Discharge: Date of : 68 Report #: [id number] THIS REPORT FOR: //name// CC: Yani PAK Physician staff DATE OF SERVICE: 01/17/2019 CHIEF COMPLAINT: Chronic low back pain and migraine headaches. HISTORY OF PRESENT ILLNESS: This is a very pleasant 48-year-old female who returns to the pain clinic today for refills of her medication that she uses to help treat her ongoing low back pain and bilateral leg pain. She also suffers from chronic migraines. She reports that her migraines have been significantly worse as well as neck pain. She reports keeping a diary of her migraines and had 18 episodes in the last month. She reports there is a dull, constant, aching pain as well as in her back. Her pain score is a 5/10 today. She feels that weather plays a significant factor in her migraines, neck and back pain as well as sitting at her computer all day. She does try to use heat and ice alternating as well as stretching exercises to help relieve some of her discomfort in her neck. Her medications she feels are beneficial as well. We did discuss migraines. She has been on diclofenac sodium. Most recently, she reports this is not helpful any longer. She previously used diclofenac potassium it was backed ordered. She is wondering if we have any alternative options for her. ALLERGIES: COMPAZINE. CURRENT LIST OF MEDICATIONS: Tizanidine 4 mg 1-2 at bedtime, oxycodone 5/325 p.r.n., methadone 10 mg q. 8 hours, gabapentin 300 mg t.i.d., diclofenac sodium as needed, clonazepam 0.5 mg b.i.d. and amlodipine 5 mg daily. PATIENT'S PQRS: 1. She is not being treated for osteo or juvenile arthritis. 2. Height is 5 feet 5 inches, weight is 191, BMI is 31. 3. Vital signs, blood pressure 156/92, pulse is 83, respirations 16, oxygen sat is 100. 4. Pain score is 5/10. 5. Denies dizziness, does not need help walking or standing, has not fallen in the last 3 months. 6. The patient is not on any blood thinners, but [place] [address] PAIN MANAGEMENT CONSULTATION Name: ZACHARIAH MAO Room #: REG [facility].#: [id number] Admission: 01/17/19 Attend Phys: Yani Hall Discharge: Date of : 68 Report #: [id number] 7. Opioid therapy is greater than 6 weeks; therefore, an opioid signed contract is on the chart. Risk assessment tool is low. Functional assessment is 38/70. 8. Recreational drug use, she denies. She is not a smoker and does not drink alcohol. According to the prescription monitoring system, the patient is due to fill her medications this week. She is filling in a timely fashion from only one physician. She does safeguard her medications as she has children in her house. There is a recent drug screen on the chart as well that is appropriate. PHYSICAL EXAMINATION: GENERAL: This is a well-developed, well-nourished, well-hydrated, slightly obese white female who appears her stated age, placing her current pain score at 5/10 today. HEENT: Normocephalic. Extraocular eye muscles are intact. NECK: She has significant tightness in the paraspinal muscles along her cervical spine, tightness in her shoulders as well. MUSCULOSKELETAL: Pain in her lumbar region of her back that does radiate into her bilateral legs. No edema noted today. Upper extremity strength judged to be 5/5 in all major muscle groups. Lower extremity strength judged to be 5/5 with intact dermatomes from L1-S2 as well. IMPRESSION: 1. History of low back pain. 2. Juvenile arthritis with myalgias. 3. History of migraine headaches under medication management. 4. Complex medical management under terms of written opioid agreement. We reviewed the fact that opiate medications are being used to provide analgesia adequate to support activities of daily living, not attempting to achieve a specific pain score on the 0-10 Visual Analog Scale. The current opiate medications are providing sufficient analgesia to allow the patient to participate in activities of daily living. The patient is not exhibiting any aberrant behavior suggestive of drug diversion. The patient is not having any adverse reactions to medications. The patient is not suffering from daytime somnolence or mental acuity changes. The patient is managing opiate-induced constipation with appropriate eytj-dbu-gfbwxgj agents and dietary considerations. The patient was counseled on concern for caution with operating a motor vehicle while using opiate medications. A physical exam was performed and the patient's functional status was evaluated. All patients with back pain were advised against the bed rest greater than 4 days and were advised to return to normal activities. Pain score assessment was noted and the treatment plan was reviewed with the patient. All current medications, both prescribed and OTC were reviewed and reconciled on the electronic medical record. Tobacco screening was accomplished and smoking [address] [place] [address] PAIN MANAGEMENT CONSULTATION Name: ZACHARIAH MAO [facility] [id number] Admission: 01/17/19 Attend Phys: Yani Hall Discharge: Date of : 68 Report #: [id number] cessation was advised when indicated. BMI was noted and diet/exercise modification was recommended for all patients following outside normal parameters. I reviewed with the patient today their responsibilities to safeguard prescription medications, reviewed their responsibility to utilize medications only as prescribed by the physician. They are to seek and receive pain medications only from 1 physician group ( [facility]). They are to use 1 pharmacy and keep the clinic informed if they change pharmacies. Their responsibilities include making followup visits in a timely fashion and to avoid abrupt discontinuation of medication usage. Their responsibilities further include bringing their medications (bottles from the pharmacy with residual pills) to the visit for possible confirmation of pill counts and the patient understands it is their responsibility to submit to random drug screens to ensure both that the medications prescribed are present, and that no other controlled substances are present. All prescriptions provided today were generated electronically. PLAN: 1. We discussed treatment options with the patient today. The patient finds her methadone and Percocet very beneficial in controlling most of her pain. She would like refills of those today. Scripts were written for methadone 10 mg, #90, for today and 4-week release and Percocet 5/325, #90, for today and 4-week release. 2. We have written clonazepam 0.5 mg b.i.d. #60 with one additional refill. We have cautioned the patient about taking this medication at the same time of her opioids. She has been stable on these meds for quite some time without side effects, but we still warn her of the risks. 3. Tizanidine 4 mg 1-2 tablets at bedtime, #60 given. This does help with some of the muscle spasms in her neck and finds it very beneficial. 4. In the past, the patient was on diclofenac potassium for her migraine headaches that was on backorder for a significant amount of time. We altered her to diclofenac sodium, which she is finding not beneficial. I encouraged her to ask the pharmacist to see if it is available. Again, we will write a prescription for diclofenac potassium if need be. We also discussed Botox for her migraine headaches. I have mentioned the name of Adriane Pitt who is a nurse practitioner that does Botox injections. The patient will look into seeing if her insurance goes to this provider. 5. We have also provided her the name for massage to see if that helps with some of her tightness in her cervical region. 6. The patient is seen in collaboration with Dr. Joe Townsend. The [address] [address] PAIN MANAGEMENT CONSULTATION Name: ZACHARIAH MAO Room #: REG YAMILET Starr#: [id number] Admission: 01/17/19 Attend Phys: Yani Hall Discharge: Date of : 68 Report #: [id number] patient will call for an appointment as needed for trigger point injections if the massage is not beneficial. <ELECTRONICALLY SIGNED> By: Yani Hall 01/22/19 0916 [id number] [id number] Yani Hall /nt
== END ==
LOC: PAIN 06:43
DX: M54.5 Low back pain (principal); G43.909 Migraine, unspecified, not intractable, without status migrainosus; Z79.891 Long term (current) use of opiate analgesic

== ENCOUNTER → 2019-03-14 | Outpatient (CLI) | payer BC, OTHER ==
[~2019-03-14] VITALS: Ht 165.1 cm; Wt 88.3 kg
[~2019-03-14] MED LIST changes: +ZANAFLEX4 M2 PO
[2019-03-14 10:50] VITALS: BP 150/98
--- NOTE | 2019-03-14 10:58 | NUR ---
Pain Clinic Assessment: 1. History of Osteoarthritis: Not Applicable History of Rheumatoid Arthritis: Not Applicable 2. Height: 5 ft. 5 in. 165.1 cm. Weight: 194.6 lb. oz. 88.270 kg. Patient's BMI: 32.4 3. Vital Signs: BP: 150/98 Pulse: 107 Resp: 14 Temp: 02 Sat: 98 ECG Mon: 4. Pain Intensity: 7 5. Fall Risk: Dizziness: N Needs help standing or walking: N Fallen in the last 3 months: N Fall risk comments: 6. Patient on Blood Thinner: None 7. History of Hypertension: Y 8. Opioid Therapy greater than 6 weeks: Y Opiate Contract Signed: 04/29/17 9. Risk Assessment Tool Provided: LOW RISK 10. Functional Assessment Tool: 11. Recreational Drug Use: Never Drug Type: Tobacco Use: Never Smoker Tobacco Type: Amount or Packs/day: How Many Years: Alcohol Use: No Frequency: Quant:
--- NOTE | 2019-03-15 08:39 | HPC ---
[facility] [place] [address] PAIN MANAGEMENT CONSULTATION Name: ZACHARIAH MAO [facility] [id number] Admission: 03/14/19 Attend Phys: Yani Hall Discharge: Date of : 68 Report #: [id number] THIS REPORT FOR: //name// CC: Yani PAK Physician staff DATE OF SERVICE: 03/14/2019 CHIEF COMPLAINT: Chronic low back pain and migraine headaches. HISTORY OF PRESENT ILLNESS: This is a pleasant 48-year-old female who returns to the pain clinic today for refill of her medications. She does report she is suffering more migraines each month. She feels that the diclofenac sodium is not beneficial and she would like to have the diclofenac potassium again, unsure if it is still on backorder. She does report that she had 19 episodes of headaches last month. Otherwise, she continues to have low back pain and bilateral leg pain. Today, she is reporting a pain score 7/10. It is constant, all day dull aching pain that is worse with weather changes and prolonged sitting. She does feel that her opioid medications are beneficial in helping her back and leg pain as well as heat. The patient does report that she felt like the Cambia that she had had in the past was beneficial in controlling her headaches, though she was only given the samples. She is unsure if her insurance company would fill that medication. She is not wanting to continue her diclofenac sodium and she has considered starting Botox injections for her migraines, but has not made an appointment with the provider at this time. ALLERGIES: COMPAZINE. CURRENT LIST OF MEDICATIONS: Gabapentin 300 mg t.i.d., tizanidine 4 mg 1-2 at bedtime p.r.n., oxycodone 5/325 p.r.n., methadone 10 mg q. 8 hours, diclofenac sodium and amlodipine 5 mg daily. PQRS: 1. She is not being treated for osteo or rheumatoid arthritis. 2. Height is 5 feet 5 inches, weight is 194, BMI is 32. 3. Vital signs: Blood pressure 150/98, pulse is 107, respirations 14, oxygen sat is 98. 4. Pain score 7/10. 5. Denies dizziness, does not need help walking or standing, has not fallen in the last 3 months. She is not on any blood thinners, but does take medicine for hypertension. [facility] [address] [place] [address] PAIN MANAGEMENT CONSULTATION Name: ZACHARIAH MAO Room #: REG [facility].#: [id number] Admission: 03/14/19 Attend Phys: Yani Hall Discharge: Date of : 68 Report #: [id number] 6. Opioid therapy is greater than 6 weeks; therefore, an opioid signed contract is on the chart. Risk assessment tool is low. Functional assessment is 70. 7. Recreational drug use, she denies. She is not a smoker and does not drink alcohol. According to the prescription monitoring system, the patient is filling her methadone and oxycodone appropriately at [facility]. She is due to fill those medications today. Her current morphine mEq is 120 per day, well above the CDC guidelines, but she has been stable on this medicine for quite some time. PHYSICAL EXAMINATION: GENERAL: This is a well-developed, well-nourished 48-year-old female who appears her stated age, placing her current pain score at 7/10. HEENT: Normocephalic. Extraocular eye muscles are intact. NECK: She has tenderness in the paraspinal muscles that radiate up into the occipital area up to her temporal area. Bright lights do make her headaches worse. MUSCULOSKELETAL: Pain in her lumbar region, radiates into her bilateral legs. Her lower extremity strength judged to be 5/5 with intact dermatomes from L1 through S2. She walks with a slow antalgic gait. IMPRESSION: 1. History of low back pain. 2. History of migraine headaches under medical management, but continues to have greater than 15 per month. 3. Juvenile arthritis with myalgias. 4. Complex medical management under terms of written opioid agreement. We reviewed the fact that opiate medications are being used to provide analgesia adequate to support activities of daily living, not attempting to achieve a specific pain score on the 0-10 Visual Analog Scale. The current opiate medications are providing sufficient analgesia to allow the patient to participate in activities of daily living. The patient is not exhibiting any aberrant behavior suggestive of drug diversion. The patient is not having any adverse reactions to medications. The patient is not suffering from daytime somnolence or mental acuity changes. The patient is managing opiate-induced constipation with appropriate vnup-udj-wkbwopm agents and dietary considerations. The patient was counseled on concern for caution with operating a motor vehicle while using opiate medications. PLAN: 1. We discussed treatment options with the patient today. The patient finds her medications beneficial except that she continues to have ongoing headaches. I again encouraged her to see nurse practitioner, Adriane Pitt, who does offer Botox injections for migraines. The patient already does keep a daily migraine headache log. We will try a prescription of Cambia 50 mg [address] [address] PAIN MANAGEMENT CONSULTATION Name: ZACHARIAH MAO Room #: REG [facility]#: [id number] Admission: 03/14/19 Attend Phys: Yani Hall Discharge: Date of : 68 Report #: [id number] needed for migraines, 7 tablets given. The patient is encouraged to take this to the pharmacy and see if it requires a prior auth. Again, she had taken this in the past and it was beneficial in controlling some of her migraines. 2. We will refill her methadone 10 mg, #90, for today and 4-week release as well as oxycodone 5/325, #90, for today and 4 weeks. These will be written by Dr. Joe Townsend who did see the patient as well. 3. I will electronically send her gabapentin and tizanidine scripts for 2 months. 4. The patient will return in followup in 2 months. The patient is seen in collaboration with Dr. Joe Townsend. <ELECTRONICALLY SIGNED> By: Yani Hall 03/15/19 0839 [id number] [id number] Yani Hall /nt
== END ==
LOC: PAIN 06:56
DX: M54.5 Low back pain (principal); G43.909 Migraine, unspecified, not intractable, without status migrainosus; M19.90 Unspecified osteoarthritis, unspecified site; Z79.891 Long term (current) use of opiate analgesic

== ENCOUNTER → 2019-05-11 | Outpatient (CLI) | payer BC, OTHER ==
[~2019-05-11] VITALS: Ht 162.6 cm; Wt 86.0 kg
--- NOTE | ~2019-05-11 | HPC ---
[facility] [place] [address] PAIN MANAGEMENT CONSULTATION Name: ZACHARIAH MAO Room #: REG YAMILET Gamble#: [id number] Admission: 05/11/19 Attend Phys: Jaswinder Townsend MD Discharge: Date of : 68 Report #: [id number] THIS REPORT FOR: cc: CAPRICE MERCHANT Physician not on staff Jaswinder Townsend MD ~ CC: Jaswinder MERCHANT Physician staff DATE OF SERVICE: 05/11/2019 CHIEF COMPLAINT: Chronic pain. HISTORY: The patient is a year 48-year-old female who has been followed in the pain clinic. She has a long history of migraines. She finds that diclofenac medication is somewhat helpful. She does have a number of headaches per month greater than 15. She also has back and bilateral leg pain. Rates her pain overall today as 4/10. She feels that her medications are beneficial. She has returned today for renewal of these medications. Pain is exacerbated by the weather. It is worse when she is sitting. She has used heat to help with the pain and discomfort. Overall, things are going reasonably well and she would like to continue with the medication. She is considering having Botox injections to help with her migraine. ALLERGIES: COMPAZINE. CURRENT MEDICATIONS: Gabapentin 300 mg t.i.d., tizanidine 4 mg 1-2 tablets at bedtime, oxycodone 5/325, methadone 10 mg t.i.d., diclofenac, and amlodipine 5 mg daily. PAIN CLINIC ASSESSMENT AND PQRS: 1. The patient is not being treated for osteoarthritis or rheumatoid arthritis. 2. Height is 5 feet 4 inches, weight 189 pounds, BMI is 32. 3. Vital signs: Blood pressure is 94/52, pulse 79, respiratory rate 18, room air saturation 99%. 4. Pain intensity 4/10. 5. Fall history: The patient has not fallen in the last 3 months. 6. Blood thinner. The patient is not on a blood thinning medication. 7. Hypertension. The patient is being treated for hypertension. 8. Opioids greater than 6 weeks. The patient received medication from one source, pain clinic. 9. Risk assessment tool, low for opioid use. 10. Functional assessment tool . 11. Recreational drug use: The patient denies. 12. Tobacco: The patient denies use of tobacco. [facility] [address] [place] [address] PAIN MANAGEMENT CONSULTATION Name: MILTONNAINAZACHARIAH Room #: REG CLI [facility]#: [id number] Admission: 05/11/19 Attend Phys: Jaswinder Townsend MD Discharge: Date of : 68 Report #: [id number] 13. Alcohol. The patient denies use of alcoholic beverages. PHYSICAL EXAMINATION: GENERAL: The patient is a well-nourished, well-developed white female, appears her stated age. She is slightly obese. She is alert and oriented x 3. Her affect is appropriate. HEENT: Normocephalic, atraumatic. Extraocular eye muscles intact. Sclerae nonicteric. The patient does have migraine type headache pain in the usual areas. NECK: Without adenopathy or JVD. HEART: Regular rate. ABDOMEN: Nontender. LUNGS: Generally clear. EXTREMITIES: Upper extremity muscle strength judged to be 5/5 for the major muscle groups in the upper extremity. The patient does have some complaints of pain in the lower portion of her back. Has had pain that radiates down into both of her legs. IMPRESSION: 1. History of migraine headaches. 2. History of low back pain. 3. Juvenile arthritis with myalgias. 4. Complex medical management using opioids to help control the pain. RECOMMENDATIONS: We discussed treatment options with the patient. At this juncture, we will continue with her medications. She is aware that opioid medications can become less effective over time due to development of tolerance. The patient feels that her medications are working reasonably well and helpful. She is contemplating Botox to help with the migraine headaches. She has returned for renewal of her medication. She feels that the medications are beneficial and would like to have the oxycodone renewed. She is taking 5 mg 1 p.o. t.i.d. She has been provided with a 2-month supply of the medication. She also will continue with methadone 10 mg 1 p.o. q. 8 hours for chronic pain. She will continue with gabapentin 300 mg 1 p.o. t.i.d. The patient will also continue with Zanaflex 4 mg 1 p.o. p.r.n. The patient denies any problems with her ability to think clearly. Her sensorium is clear. We have provided the patient with the medication. She will follow up in the future as needed. We would like to thank you for letting us participate in her care. We hope she continues to improve. By: [id number] Jaswinder Townsend MD /matthew
[2019-05-11 09:04] VITALS: BP 94/52
--- NOTE | 2019-05-11 09:07 | NUR ---
Pain Clinic Assessment: 1. History of Osteoarthritis: Not Applicable History of Rheumatoid Arthritis: Not Applicable 2. Height: 5 ft. 4 in. 162.6 cm. Weight: 189.6 lb. oz. 86.002 kg. Patient's BMI: 32.5 3. Vital Signs: BP: 94/52 Pulse: 79 Resp: 18 Temp: 02 Sat: 99 ECG Mon: 4. Pain Intensity: 4 5. Fall Risk: Dizziness: N Needs help standing or walking: N Fallen in the last 3 months: N Fall risk comments: 6. Patient on Blood Thinner: None 7. History of Hypertension: Y 8. Opioid Therapy greater than 6 weeks: Y Opiate Contract Signed: 04/29/17 9. Risk Assessment Tool Provided: LOW RISK 10. Functional Assessment Tool: 11. Recreational Drug Use: Never Drug Type: Tobacco Use: Never Smoker Tobacco Type: Amount or Packs/day: How Many Years: Alcohol Use: No Frequency: Quant:
== END ==
LOC: PAIN 08:26
DX: G43.809 Other migraine, not intractable, without status migrainosus (principal); G89.29 Other chronic pain; M54.5 Low back pain; M08.88 Other juvenile arthritis, other specified site; F11.20 Opioid dependence, uncomplicated

== ENCOUNTER → 2019-07-04 | Outpatient (CLI) | payer BC, OTHER ==
[~2019-07-04] VITALS: Ht 162.6 cm; Wt 87.4 kg
[2019-07-04 09:06] VITALS: BP 119/82
--- NOTE | 2019-07-04 09:17 | NUR ---
Pain Clinic Assessment: 1. History of Osteoarthritis: SPINAL History of Rheumatoid Arthritis: Not Applicable 2. Height: 5 ft. 4 in. 162.6 cm. Weight: 192.6 lb. oz. 87.363 kg. Patient's BMI: 33.0 3. Vital Signs: BP: 119/82 Pulse: 85 Resp: 16 Temp: 02 Sat: 100 ECG Mon: 4. Pain Intensity: 5 5. Fall Risk: Dizziness: N Needs help standing or walking: N Fallen in the last 3 months: N Fall risk comments: 6. Patient on Blood Thinner: None 7. History of Hypertension: Y 8. Opioid Therapy greater than 6 weeks: Y Opiate Contract Signed: 04/29/17 9. Risk Assessment Tool Provided: LOW RISK 10. Functional Assessment Tool: 11. Recreational Drug Use: Never Drug Type: Tobacco Use: Never Smoker Tobacco Type: Amount or Packs/day: How Many Years: Alcohol Use: No Frequency: Quant:
--- NOTE | 2019-08-10 08:01 | HPC ---
[facility] [place] [address] PAIN MANAGEMENT CONSULTATION Name: ZACHARIAH MAO Room #: REG YAMILET Gamble#: [id number] Admission: 07/04/19 Attend Phys: Jaswinder Townsend MD Discharge: Date of : 68 Report #: [id number] THIS REPORT FOR: cc: CAPRICE MERCHANT Physician not on staff Jaswinder Townsend MD ~ CC: Jaswinder MERCHANT Physician staff DATE OF SERVICE: 07/04/2019 CHIEF COMPLAINT: Here for medication refill. HISTORY: The patient is a 48-year-old female who has been followed in the pain clinic. As you may recall, she has a history of chronic migraines. She also suffers from low back pain. She was taking diclofenac. She feels that her migraines have restarted or have worsened. She would like to consider restarting the diclofenac medication. Pain intensity is 5/7. She notes that the pain is worse with changes in the weather. Sitting can be problematic. She feels that her current medical regimen of gabapentin, tizanidine, oxycodone and methadone are helpful. She has returned today and would like to have these medications renewed. She does continue to have a number of migraine headaches greater than 15. She is considering Botox injections to help with the migraines. ALLERGIES: COMPAZINE. CURRENT MEDICATIONS: Gabapentin 300 mg t.i.d., tizanidine 4 mg 1-2 tablets at bedtime, oxycodone 5/325, methadone 10 mg 1 p.o. t.i.d., diclofenac, amlodipine 5 mg. PAIN CLINIC ASSESSMENT AND PQRS: 1. The patient is not being treated for osteoarthritis or rheumatoid arthritis. 2. Height 5 feet 4 inches, weight 192 pounds, BMI is 33. 3. Vital Signs: Blood pressure 119/82, pulse 85, respiratory rate 16, room air saturation is 100%. 4. Pain intensity 5/10. 5. Fall history: The patient has not fallen. Did go to the Emergency Room because of vomiting. 6. Blood thinner. The patient is not on a blood thinning medication. 7. Hypertension. The patient is being treated for hypertension. 8. Opioids greater than 6 weeks. The patient receives medication from the pain clinic. 9. Risk assessment tool, low for opioid use. [address] [address] PAIN MANAGEMENT CONSULTATION Name: ZACHARIAH MAO Room #: REG CLBaldomero Starr#: [id number] Admission: 07/04/19 Attend Phys: Jaswinder Townsend MD Discharge: Date of : 68 Report #: [id number] . Functional assessment tool . 11. Recreational drug use. The patient denies. 12. Tobacco: The patient has never smoked. 13. Alcohol. The patient denies use of alcoholic beverages. PHYSICAL EXAMINATION: GENERAL: The patient is a well-developed, well-nourished white female. Appears her stated age. She is slightly obese. She is alert and oriented x 3. Her affect is appropriate. Speech is fluent. HEENT: Normocephalic, atraumatic. Extraocular eye muscles intact. Sclerae nonicteric. The patient continues to have migraine headaches in the usual areas. NECK: Without adenopathy or JVD. HEART: Regular rate. ABDOMEN: Nontender. LUNGS: Generally clear. EXTREMITIES: Upper extremity muscle strength judged to be 5/5 for the major muscle groups in the upper extremity. The patient does have some complaints of pain in the lower portion of her back. These radiated down into her legs. IMPRESSION: 1. History of migraine headaches. 2. History of low back pain. 3. Juvenile arthritis with myalgias. 4. Complex medical management using opioids to help control the pain. RECOMMENDATIONS: We discussed treatment options with the patient. At this juncture, we will continue with her medications. She is aware that opioids can become less effective over time because of tolerance. She feels the medications overall working reasonably well. She does not have any problems with her medications. She feels that she is able to think clearly with their use. A script for her medications have been rewritten. The patient will continue with methadone 10 mg 1 p.o. t.i.d. She will also continue with Percocet 5/325 one p.o. t.i.d. The patient will continue with Klonopin 0.5 mg b.i.d., a script for gabapentin 300 mg 1 p.o. t.i.d. has been written as well. The patient will continue with the tizanidine to help with muscle spasms 1-2 tablets at bedtime. She will also continue with diclofenac 50 mg 1 p.o. b.i.d. We would like to thank you for letting us participate in her care. We hope she continues to improve. <ELECTRONICALLY SIGNED> By: Jaswinder Townsend MD 08/10/19 0801 [id number] Jaswinder Townsend MD /DORIAN
== END ==
LOC: PAIN 06:50
PROVIDERS: ATTEND Anesthesiology Pain Medicine
DX: G43.009 Migraine without aura, not intractable, without status migrainosus (principal); M79.10 Myalgia, unspecified site; F10.10 Alcohol abuse, uncomplicated; I10 Essential (primary) hypertension; F11.20 Opioid dependence, uncomplicated; M19.90 Unspecified osteoarthritis, unspecified site; Z87.39 Personal history of other diseases of the musculoskeletal system and connective tissue; Z86.69 Personal history of other diseases of the nervous system and sense organs; Z88.8 Allergy status to other drugs, medicaments and biological substances; Z79.899 Other long term (current) drug therapy

== ENCOUNTER → 2019-08-31 | Outpatient (CLI) | payer BC, OTHER ==
[~2019-08-31] VITALS: Ht 162.6 cm; Wt 84.6 kg
[2019-08-31 13:58] VITALS: BP 150/91
--- NOTE | 2019-08-31 14:02 | NUR ---
Pain Clinic Assessment: 1. History of Osteoarthritis: SPINAL History of Rheumatoid Arthritis: Not Applicable 2. Height: 5 ft. 4 in. 162.6 cm. Weight: 186.4 lb. oz. 84.551 kg. Patient's BMI: 32.0 3. Vital Signs: BP: 150/91 Pulse: 60 Resp: 18 Temp: 02 Sat: 96 ECG Mon: 4. Pain Intensity: 5 5. Fall Risk: Dizziness: N Needs help standing or walking: N Fallen in the last 3 months: N Fall risk comments: 6. Patient on Blood Thinner: None 7. History of Hypertension: Y 8. Opioid Therapy greater than 6 weeks: Y Opiate Contract Signed: 04/29/17 9. Risk Assessment Tool Provided: LOW RISK 10. Functional Assessment Tool: 11. Recreational Drug Use: Never Drug Type: Tobacco Use: Never Smoker Tobacco Type: Amount or Packs/day: How Many Years: Alcohol Use: No Frequency: Quant:
--- NOTE | 2019-09-19 08:53 | HPC ---
[facility] [place] [address] PAIN MANAGEMENT CONSULTATION Name: ZACHARIAH MAO Room #: REG YAMILET Starr#: [id number] Admission: 08/31/19 Attend Phys: Jaswinder Townsend MD Discharge: Date of : 68 Report #: [id number] THIS REPORT FOR: cc: MEGHAN MERCHANT Physician not on staff Jaswinder Townsend MD ~ CC: Jaswinder MERCHANT Physician staff DATE OF SERVICE: 08/31/2019 PRIMARY CARE PHYSICIAN: Meghan Merchant NP CHIEF COMPLAINT: Here for medication refill. HISTORY: The patient is a 48-year-old female who has been followed in the pain clinic because of chronic migraine headaches. She has been experiencing chronic migraine headaches as well as low back pain. Pain has worsened since switch of her medication, diclofenac. She describes her pain as a 5/10. It worsens with weather. Sitting can be problematic. Oftentimes the pain is constant. She finds her medication is helpful and has used heat as well. She has returned today for a renewal of her medications. ALLERGIES: COMPAZINE. CURRENT MEDICATIONS: Gabapentin 300 mg t.i.d., tizanidine 4 mg 1-2 tablets at bedtime, oxycodone 5/325, methadone 10 mg 1 p.o. t.i.d., diclofenac, amlodipine 5 mg. PAIN CLINIC ASSESSMENT AND PQRS: 1. The patient is not being treated for osteoarthritis or rheumatoid arthritis. 2. Height 5 feet 4 inches, weight 186 pounds, BMI is 32. 3. Vital signs: Blood pressure 150/91, pulse 60, respiratory rate 18, room air saturation is 96%. 4. Pain intensity 5/10. 5. Fall history: The patient has not fallen since we saw her last. 6. Blood thinner. The patient is not on a blood thinning medication. 7. Hypertension. The patient is being treated for hypertension. 8. Opioids greater than 6 weeks. The patient receives medication from the pain clinic. 9. Risk assessment tool, low for opioids. 10. Functional assessment tool 38 out of 70. 11. Recreational drug use. The patient denies. 12. Tobacco: The patient has never smoked. 13. Alcohol. The patient denies frequent use of alcoholic beverages. [address] [address] PAIN MANAGEMENT CONSULTATION Name: MILTONNAINAZACHARIAH [id number] Admission: 08/31/19 Attend Phys: Jaswinder Townsend MD Discharge: Date of : 68 Report #: [id number] PHYSICAL EXAMINATION: GENERAL: The patient is a well-developed, well-nourished female. Appears her stated age. She is slightly obese. She is alert and oriented x 3. Her affect is appropriate. Speech is fluent. HEENT: Normocephalic, atraumatic. Extraocular eye muscles intact. Sclerae nonicteric. Mucous membranes are moist. The patient has migraines in the usual fashion. NECK: Without adenopathy or JVD. HEART: Regular rate. ABDOMEN: Nontender. LUNGS: Generally clear. EXTREMITIES: Upper extremity muscle strength judged to be 5/5 for the major muscle groups in the upper extremity. The patient has some complaints of pain in the lower portion of her back. Has pain that radiates on occasion down into her legs. IMPRESSION: 1. History of migraine headaches. 2. History of low back pain. 3. Juvenile arthritis with myalgias. 4. Complex medical management using opioids to help control pain. RECOMMENDATIONS: We discussed treatment options with the patient. At this point, we will continue with her medications. She is aware that opioid medications can become problematic for certain people. She has not shown any signs of dependency. She is taking the medication as prescribed. She is not showing signs of addiction. She feels that the medications are helpful in controlling the pain. We will continue with her medications. A script for her medications have been written. The patient will continue with methadone 10 mg 1 p.o. t.i.d. A script for Percocet 5/325 mg 1 p.o. t.i.d. has also been provided. The patient finds that Klonopin 5 mg b.i.d. is helpful. The patient also continues with gabapentin 300 mg 1 p.o. t.i.d. The patient finds that tizanidine is helpful with muscle spasms. A script for this medication has been renewed. The patient will also continue with diclofenac b.i.d. We would like to thank you for letting us participate in her care. We hope she continues to improve. <ELECTRONICALLY SIGNED> By: Jaswinder Townsend MD 09/19/19 [id number] Jaswinder Townsend MD /[facility]
== END ==
LOC: PAIN 06:47
PROVIDERS: ATTEND Anesthesiology Pain Medicine
DX: Z76.0 Encounter for issue of repeat prescription (principal); G43.909 Migraine, unspecified, not intractable, without status migrainosus; I10 Essential (primary) hypertension; Z79.891 Long term (current) use of opiate analgesic

== ENCOUNTER → 2019-10-24 | Outpatient (CLI) | payer BC, OTHER ==
[~2019-10-24] VITALS: Ht 162.6 cm; Wt 87.3 kg
--- NOTE | ~2019-10-24 | HPC ---
[facility] [place] [address] PAIN MANAGEMENT CONSULTATION Name: ZACHARIAH MAO Room #: REG YAMILET Gamble#: [id number] Admission: 10/24/19 Attend Phys: Jaswinder Townsend MD Discharge: Date of : 68 Report #: [id number] THIS REPORT FOR: cc: MEGHAN MERCHANT Physician not on staff Jaswinder Townsend MD ~ CC: Jaswinder MERCHANT Physician staff DATE OF SERVICE: 10/24/2019 PRIMARY CARE PHYSICIAN: Meghan Merchant NP CHIEF COMPLAINT: Here for medication refill. HISTORY: The patient is a 49-year-old female who has been followed in the pain clinic. She has a history of migraine headaches. She continues to suffer from these discomforts. She feels there is worsening of pain in the anterior portion of her legs and down into her shins. She feels overall that the migraines are reasonably stable. Pain involves her low back down into both left and right leg. There is a dull sensation with chronic aching discomfort. She rates her pain overall as a 5/10. Notes that the pain is worse with changes in the weather. Sitting can be problematic. Feels that her medications are helpful. Feels that heat can be beneficial as well. She has returned today for renewal of her medications. ALLERGIES: COMPAZINE. CURRENT MEDICATIONS: Gabapentin 300 mg t.i.d., tizanidine 4 mg 1-2 tablets at bedtime, oxycodone 5/325, methadone 10 mg 1 p.o. t.i.d., diclofenac, amlodipine 5 mg. PAIN CLINIC ASSESSMENT AND PQRS: 1. The patient is not being treated for osteoarthritis or rheumatoid arthritis. 2. Height 5 feet 4 inches, weight 192 pounds, BMI is 33. 3. Vital signs: Blood pressure 166/94, heart rate 101, respiratory rate 18, room air saturation 100%. 4. Pain intensity is 5/10. 5. Fall history: The patient has not fallen since we saw her last. 6. Blood thinner. The patient is not on a blood thinning medication. 7. Hypertension. The patient is being treated for hypertension. 8. Opioids greater than 6 weeks. The patient receives medication from the pain clinic. 9. Risk assessment tool, low for opioid use. 10. Functional assessment tool 38 out of 70. [place] [address] PAIN MANAGEMENT CONSULTATION Name: MILTONNAINAZACHARIAH Room #: REG CLI [facility]#: [id number] Admission: 10/24/19 Attend Phys: Jaswinder Townsend MD Discharge: Date of : 68 Report #: [id number] 11. Recreational drug use. The patient denies. 12. Tobacco: The patient has never smoked. 13. Alcohol. The patient denies frequent use of alcoholic beverages. PHYSICAL EXAMINATION: GENERAL: The patient is a well-developed, well-nourished white female. Appears her stated age. She is alert and oriented x 3. She is slightly obese. Her affect is appropriate. Speech is fluent. She is wearing a facial covering. HEENT: Normocephalic, atraumatic. Extraocular eye muscles intact. Sclerae nonicteric. Mucous membranes are moist. The patient does complain of migraine headaches. NECK: Without adenopathy or JVD. HEART: Regular rate. ABDOMEN: Nontender. LUNGS: Clear. EXTREMITIES: Upper extremity muscle strength judged to be 5/5 for the major muscle groups in the upper extremity. The patient has some complaints of pain in lower portion of her back. Complains of pain that radiates down into her legs. IMPRESSION: 1. History of migraine headaches. 2. History of back pain with some radicular discomfort. 3. Juvenile arthritis with myalgias. 4. Complex medical management using opioids to help control pain. RECOMMENDATIONS: We discussed treatment options with the patient. At this juncture, we will continue with her medications. She feels the medications are helpful. She is aware that opioid medications can become less effective as time goes on. We have discussed the problems with dependency and drug addiction with some patients. She feels her medications are working reasonably well. We will continue with her medications. A script for methadone 10 mg 1 p.o. t.i.d. has been provided. The patient will also continue with Percocet 5/325 one p.o. t.i.d. The patient continues to find Klonopin 5 mg b.i.d. helpful. The patient will also continue with use of gabapentin 300 mg 1 p.o. t.i.d. The patient still has muscle spasms. We will continue with tizanidine 4 mg p.r.n. The patient will also call us if she has any concerns. We would like to thank you for letting us participate in her care. We hope she continues to improve. By: [id number] Jaswinder Townsend MD /DORIAN
[2019-10-24 09:22] VITALS: BP 166/94
--- NOTE | 2019-10-24 09:26 | NUR ---
Pain Clinic Assessment: 1. History of Osteoarthritis: SPINAL History of Rheumatoid Arthritis: Not Applicable 2. Height: 5 ft. 4 in. 162.6 cm. Weight: 192.4 lb. oz. 87.272 kg. Patient's BMI: 33.0 3. Vital Signs: BP: 166/94 Pulse: 101 Resp: 18 Temp: 02 Sat: 100 ECG Mon: 4. Pain Intensity: 5 5. Fall Risk: Dizziness: N Needs help standing or walking: N Fallen in the last 3 months: N Fall risk comments: 6. Patient on Blood Thinner: None 7. History of Hypertension: Y 8. Opioid Therapy greater than 6 weeks: Y Opiate Contract Signed: 04/29/17 9. Risk Assessment Tool Provided: LOW RISK 10. Functional Assessment Tool: 11. Recreational Drug Use: Never Drug Type: Tobacco Use: Never Smoker Tobacco Type: Amount or Packs/day: How Many Years: Alcohol Use: No Frequency: Quant:
== END ==
LOC: PAIN 06:51
PROVIDERS: ATTEND Anesthesiology Pain Medicine
DX: G43.809 Other migraine, not intractable, without status migrainosus (principal); M08.90 Juvenile arthritis, unspecified, unspecified site; M79.10 Myalgia, unspecified site

== ENCOUNTER → 2019-12-19 | Outpatient (CLI) | payer BC, OTHER ==
[~2019-12-19] VITALS: Ht 162.6 cm; Wt 88.3 kg
[2019-12-19 08:46] VITALS: BP 151/91
--- NOTE | 2019-12-19 09:03 | NUR ---
Pain Clinic Assessment: 1. History of Osteoarthritis: SPINAL History of Rheumatoid Arthritis: DENIES 2. Height: 5 ft. 4 in. 162.6 cm. Weight: 194.6 lb. oz. 88.270 kg. Patient's BMI: 33.4 3. Vital Signs: BP: 151/91 Pulse: 86 Resp: 14 Temp: 02 Sat: 99 ECG Mon: 4. Pain Intensity: 6-7 5. Fall Risk: Dizziness: N Needs help standing or walking: N Fallen in the last 3 months: N Fall risk comments: 6. Patient on Blood Thinner: None 7. History of Hypertension: Y 8. Opioid Therapy greater than 6 weeks: Y Opiate Contract Signed: 04/29/17 9. Risk Assessment Tool Provided: LOW RISK 10. Functional Assessment Tool: 11. Recreational Drug Use: Never Drug Type: Tobacco Use: Never Smoker Tobacco Type: Amount or Packs/day: How Many Years: Alcohol Use: No Frequency: Quant:
--- NOTE | 2019-12-20 12:40 | HPC ---
[facility] [address] [place] [address] PAIN MANAGEMENT CONSULTATION Name: ZACHARIAH MAO Room #: REG [facility] [id number] Admission: 12/19/19 Attend Phys: Yani Hall Discharge: Date of : 68 Report #: [id number] CC: Yani PAK Physician staff DATE OF SERVICE: 12/19/2019 HISTORY OF PRESENT ILLNESS: This is a 49-year-old female who returns to the pain clinic today for refill of her medications. Today, she is reporting a pain score of 6-7, which is slightly elevated for her. She states it is because she is under significant stress. Her was diagnosed with large mass B cell lymphoma in June, stage 4. He is undergoing very aggressive treatment and is an inpatient at [facility], so she is very worried about him. She also has children that have several health issues and she continues to try and work throughout this at home. She does report that her blood pressure is elevated due to her stress as well and because of this she has been having more migraines, but feels that the diclofenac tablets have been beneficial in helping with that. She does report most significant pain in her low back with bilateral legs. It is a dull aching pain, worse with prolonged sitting and weather changes. The patient reports that since working at home she has not been as active, so she is sitting more than she would typically at a normal work day in the office. She feels this has exacerbated some of her pain as well. She denies any problems with constipation as a result of her opioid medications. ALLERGIES: COMPAZINE. CURRENT LIST OF MEDICATIONS: Tizanidine 4 mg at bedtime, oxycodone 5/325 p.r.n., methadone 10 mg t.i.d., gabapentin 300 mg t.i.d., diclofenac, clonazepam and Norvasc. PQRS: 1. She has a history of arthritic changes in her spine, is not being treated for rheumatoid arthritis. 2. Height is 5 feet 4 inches, weight is 194, BMI is 33. 3. Vital signs; blood pressure 151/91, pulse is 86, respirations 14, oxygen sat is 99. 4. Pain score is 6-7. 5. Denies dizziness, does not need help walking or standing, has not fallen in the last 3 months. 6. The patient is not on any blood thinners, but does have a history of hypertension. 7. Opioid therapy is greater than 6 weeks; therefore, an opioid signed contract is on the chart. Risk assessment is low. Functional assessment is 38/70. 8. Recreational drug use, she denies. She is not a smoker and does not drink alcohol. According to the prescription monitoring system, the patient is filling appropriately in a timely fashion. Her morphine milliequivalent is high at 130 according to the CDC recommendations, but she has been stable on these meds for quite some time. PHYSICAL EXAMINATION: GENERAL: This is a well-developed, well-nourished, alert and oriented 49-year-old female who appears her stated age. Her affect is appropriate. Her speech is fluent. HEENT: Normocephalic, atraumatic. Extraocular eye muscles are intact. She is wearing a mask. She has migraine headache in the temporal area today. NECK: Without adenopathy or JVD. EXTREMITIES: Upper extremity strength judged to be symmetrical at 5/5. The patient has complaints of lower lumbar spine pain that radiates into her legs bilaterally. Lower extremity strength is symmetrical at 5/5. IMPRESSION: 1. History of migraine headaches. 2. History of low back pain. 3. Juvenile arthritis with myalgias. 4. Complex medical management under terms of written opioid agreement. We reviewed the fact that opiate medications are being used to provide analgesia adequate to support activities of daily living, not attempting to achieve a specific pain score on the 0-10 Visual Analog Scale. The current opiate medications are providing sufficient analgesia to allow the patient to participate in activities of daily living. The patient is not exhibiting any aberrant behavior suggestive of drug diversion. The patient is not having any adverse reactions to medications. The patient is not suffering from daytime somnolence or mental acuity changes. The patient is managing opiate-induced constipation with appropriate [id number]-nxklbyd agents and dietary considerations. The patient was counseled on concern for caution with operating a motor vehicle while using opiate medications. PLAN: 1. We discussed treatment options with the patient today. The patient finds her medications very beneficial in controlling her pain despite having it elevated pain score today due to stress, which is evident in her family situation. Today, we will continue her on her methadone 10 mg t.i.d. as well as her Percocet 5/325 t.i.d. Scripts will be sent electronically for [address] Townsend. 2. We will continue her Klonopin 5 mg b.i.d., gabapentin 300 mg t.i.d., temazepam 4 mg p.r.n. and diclofenac 50 mg tablets. She finds all these medications helpful in controlling her various pain generators. 3. We did discuss sleep. The patient has been having difficulty sleeping at night. We discussed melatonin in a gummy formula that does work quicker or there is an extended release melatonin as well to try this to help with her insomnia. 4. The patient will return in 2 months. The patient is seen today in collaboration with Dr. Townsend. <ELECTRONICALLY SIGNED> By: Yani Hall 12/20/19 1240 [id number] Yani Hall /matthew
== END ==
LOC: PAIN 06:49
PROVIDERS: ATTEND Clinical Nurse Specialist Adult Health
DX: G43.909 Migraine, unspecified, not intractable, without status migrainosus (principal); Z79.891 Long term (current) use of opiate analgesic

== ENCOUNTER → 2020-02-13 | Outpatient (CLI) | payer BC, OTHER ==
[~2020-02-13] VITALS: Ht 162.6 cm; Wt 87.1 kg
[~2020-02-13] MED LIST changes: +IMITREX 25 MG T25 M1 PO
[2020-02-13 08:26] VITALS: BP 146/89
--- NOTE | 2020-02-13 08:41 | NUR ---
Pain Clinic Assessment: 1. History of Osteoarthritis: SPINAL History of Rheumatoid Arthritis: DENIES 2. Height: 5 ft. 4 in. 162.6 cm. Weight: 192.0 lb. oz. 87.091 kg. Patient's BMI: 32.9 3. Vital Signs: BP: 146/89 Pulse: 106 Resp: 16 Temp: 02 Sat: 99 ECG Mon: 4. Pain Intensity: 8 5. Fall Risk: Dizziness: N Needs help standing or walking: N Fallen in the last 3 months: N Fall risk comments: 6. Patient on Blood Thinner: None 7. History of Hypertension: Y 8. Opioid Therapy greater than 6 weeks: Y Opiate Contract Signed: 04/29/17 9. Risk Assessment Tool Provided: LOW RISK 10. Functional Assessment Tool: 11. Recreational Drug Use: Never Drug Type: Tobacco Use: Never Smoker Tobacco Type: Amount or Packs/day: How Many Years: Alcohol Use: No Frequency: Quant:
--- NOTE | 2020-02-13 15:46 | HPC ---
[facility] [place] [address] PAIN MANAGEMENT CONSULTATION Name: ZACHARIAH MAO Room #: REG [facility]#: [id number] Admission: 02/13/20 Attend Phys: Yani Hall Discharge: Date of : 68 Report #: [id number] THIS REPORT FOR: cc: [employer] Physician not on staff Yani Hall DATE OF SERVICE: 02/13/2020 CHIEF COMPLAINT: Migraine headaches and low back pain. HISTORY OF PRESENT ILLNESS: This is a 49-year-old female who returns to the pain clinic today for refill of her medications. Today, she is reporting she has been very depressed and her pain is worse. She is unsure what has caused a significant change other than the weather. She reports that it may be a hormonal imbalance. She has recently stopped having menses in the past few months, unsure if that is what is increasing her "depression or bouts of crying for no reason." The patient also reports that she has migraine headaches every other day now. She feels that has been increased in the amount that she typically has in a month as well. Today, her pain is 8/10. She states it is an aching, constant, dull pain. 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 ALLERGIES: COMPAZINE. CURRENT LIST OF MEDICATIONS: Tizanidine, oxycodone, gabapentin, diclofenac tablets, methadone, clonazepam and amlodipine. PQRS: 1. She has arthritic changes in her spine and has a diagnosis of juvenile arthritis. She is not being treated for rheumatoid arthritis. 2. Height is 5 feet 4 inches, weight is 192, BMI is 32. Vital signs; blood pressure 146/89, pulse is 106, respirations 16, oxygen sat is 99%. 3. Pain score is 8/10. 4. Denies dizziness, does not need help walking or standing, has not fallen in the last 3 months. 5. The patient is not on any blood thinners, but does take medicine for hypertension. 6. Opioid therapy is greater than 6 weeks; therefore, an opioid signed contract is on the chart. Risk assessment is low. Functional assessment is 38/70. 7. Recreational drug use, she denies. She is not a smoker and does not drink alcohol. According to the prescription monitoring system, the patient is filling appropriately. She is due to fill her medications today. Her morphine mEq is quite high due to the methadone conversion at 124 MMEs per day. There is a drug [address] [address] PAIN MANAGEMENT CONSULTATION Name: ZACHARIAH MAO Room #: REG [facility]#: [id number] Admission: 02/13/20 Attend Phys: Yani Hall Discharge: Date of : 68 Report #: [id number] screen on the chart. We will recheck that in the New Year. PHYSICAL EXAMINATION: GENERAL: This is alert and orientated, slightly depressed 49-year-old who appears her stated age, placing her current pain score at 8/10. Her speech is fluent. HEENT: Normocephalic and atraumatic. Extraocular eye muscles are intact. She is wearing a mask. Headache in the temporal portion of her head today. NECK: Without adenopathy or JVD. EXTREMITIES: Low back tenderness that radiates into her legs bilaterally. MUSCULOSKELETAL: Lower extremity strength is symmetrical at 5/5. IMPRESSION: 1. Migraine headaches increasing in frequency. 2. Low back pain. 3. Juvenile arthritis with myalgias. 4. Complex medical management under terms of written opioid agreement. We reviewed the fact that opiate medications are being used to provide analgesia adequate to support activities of daily living, not attempting to achieve a specific pain score on the 0-10 Visual Analog Scale. The current opiate medications are providing sufficient analgesia to allow the patient to participate in activities of daily living. The patient is not exhibiting any aberrant behavior suggestive of drug diversion. The patient is not having any adverse reactions to medications. The patient is not suffering from daytime somnolence or mental acuity changes. The patient is managing opiate-induced constipation with appropriate zeow-vlf-naltlri agents and dietary considerations. The patient was counseled on concern for caution with operating a motor vehicle while using opiate medications. A physical exam was performed and the patient's functional status was evaluated. All patients with back pain were advised against the bed rest greater than 4 days and were advised to return to normal activities. Pain score assessment was noted and the treatment plan was reviewed with the patient. All current medications, both prescribed and OTC were reviewed and reconciled on the electronic medical record. Tobacco screening was accomplished and smoking cessation was advised when indicated. BMI was noted and diet/exercise modification was recommended for all patients following outside normal parameters. I reviewed with the patient today their responsibilities to safeguard prescription medications, reviewed their responsibility to utilize medications only as prescribed by the physician. They are to seek and receive pain medications only from 1 physician group ([facility]). They are to use 1 pharmacy and keep the clinic informed if they change pharmacies. Their responsibilities include making followup visits in a timely fashion and to avoid [address] [address] PAIN MANAGEMENT CONSULTATION Name: ZACHARIAH MAO Room #: REG [facility]#: [id number] Admission: 02/13/20 Attend Phys: Yani Hall Discharge: Date of : 68 Report #: [id number] abrupt discontinuation of medication usage. Their responsibilities further include bringing their medications (bottles from the pharmacy with residual pills) to the visit for possible confirmation of pill counts and the patient understands it is their responsibility to submit to random drug screens to ensure both that the medications prescribed are present, and that no other controlled substances are present. All prescriptions provided today were generated electronically. PLAN: 1. We discussed treatment options with the patient today. The patient believes that she is feeling more depressed. She is unsure if it is circumstances with her or if it is hormonal imbalance. She has not had a menses in 3 months. I encouraged her to contact her primary care doctor or a nurse practitioner and have her labs drawn to see if they may provide her with hormone replacement or discuss antidepressant therapy for her. 2. We did discuss her migraine headaches, which she continues to suffer with every few days. She has been taking diclofenac tablets that were beneficial, but have not been helping as frequently as they had in the past. We will trial Imitrex 25 mg tablets enabling the patient to take 1 tablet at onset of headache and repeat in 2 hours if needed. Scripts sent for #12 with one additional refill. 3. We will continue her on her methadone and oxycodone scripts will be sent for [address] Townsend as well as her clonazepam. 4. We will collect a random drug screen on her in the next 2 months visit. The patient is seen today in collaboration with Dr. Townsend. <ELECTRONICALLY SIGNED> By: Yani Hall 02/13/20 1546 [id number] Yani Hall /nt
== END ==
LOC: PAIN 06:46
PROVIDERS: ATTEND Clinical Nurse Specialist Adult Health
DX: G43.909 Migraine, unspecified, not intractable, without status migrainosus (principal); M54.5 Low back pain; M79.10 Myalgia, unspecified site; Z79.891 Long term (current) use of opiate analgesic

== ENCOUNTER → 2020-04-11 | Outpatient (CLI) | payer BC, OTHER ==
[~2020-04-11] VITALS: Ht 162.6 cm; Wt 89.4 kg
[2020-04-11 08:31] VITALS: BP 103/74
--- NOTE | 2020-04-11 08:41 | NUR ---
Pain Clinic Assessment: 1. History of Osteoarthritis: SPINAL History of Rheumatoid Arthritis: DENIES 2. Height: 5 ft. 4 in. 162.6 cm. Weight: 197.0 lb. oz. 89.359 kg. Patient's BMI: 33.8 3. Vital Signs: BP: 103/74 Pulse: 69 Resp: 16 Temp: 02 Sat: 100 ECG Mon: 4. Pain Intensity: 5 5. Fall Risk: Dizziness: N Needs help standing or walking: N Fallen in the last 3 months: N Fall risk comments: 6. Patient on Blood Thinner: None 7. History of Hypertension: Y 8. Opioid Therapy greater than 6 weeks: Y Opiate Contract Signed: 04/29/17 9. Risk Assessment Tool Provided: LOW RISK 10. Functional Assessment Tool: 11. Recreational Drug Use: Never Drug Type: Tobacco Use: Never Smoker Tobacco Type: Amount or Packs/day: How Many Years: Alcohol Use: No Frequency: Quant:
== END ==
LOC: PAIN 06:49
PROVIDERS: ATTEND Anesthesiology Pain Medicine
DX: G89.29 Other chronic pain (principal); M08.9A Juvenile arthritis, unspecified, other specified site; M79.10 Myalgia, unspecified site; F11.20 Opioid dependence, uncomplicated; Z86.69 Personal history of other diseases of the nervous system and sense organs; Z87.39 Personal history of other diseases of the musculoskeletal system and connective tissue; Z88.8 Allergy status to other drugs, medicaments and biological substances; Z79.899 Other long term (current) drug therapy

== ENCOUNTER → 2020-06-06 | Outpatient (CLI) | payer BC, OTHER ==
[~2020-06-06] VITALS: Ht 162.6 cm; Wt 89.4 kg
[2020-06-06 08:19] VITALS: BP 144/87
--- NOTE | 2020-06-06 08:27 | NUR ---
Pain Clinic Assessment: 1. History of Osteoarthritis: SPINAL History of Rheumatoid Arthritis: DENIES 2. Height: 5 ft. 4 in. 162.6 cm. Weight: 197.2 lb. oz. 89.449 kg. Patient's BMI: 33.8 3. Vital Signs: BP: 144/87 Pulse: 115 Resp: 16 Temp: 02 Sat: 100 ECG Mon: 4. Pain Intensity: 6 5. Fall Risk: Dizziness: N Needs help standing or walking: N Fallen in the last 3 months: N Fall risk comments: 6. Patient on Blood Thinner: None 7. History of Hypertension: Y 8. Opioid Therapy greater than 6 weeks: Y Opiate Contract Signed: 04/29/17 9. Risk Assessment Tool Provided: LOW RISK 10. Functional Assessment Tool: 11. Recreational Drug Use: Never Drug Type: Tobacco Use: Never Smoker Tobacco Type: Amount or Packs/day: How Many Years: Alcohol Use: No Frequency: Quant:
== END ==
LOC: PAIN 07:54
PROVIDERS: ATTEND Anesthesiology Pain Medicine
DX: G43.909 Migraine, unspecified, not intractable, without status migrainosus (principal); M19.90 Unspecified osteoarthritis, unspecified site; I10 Essential (primary) hypertension; Z79.891 Long term (current) use of opiate analgesic; Z79.899 Other long term (current) drug therapy

== ENCOUNTER → 2020-08-01 | Outpatient (CLI) | payer OTHER ==
[~2020-08-01] VITALS: Ht 162.6 cm; Wt 89.5 kg
[2020-08-01 08:11] VITALS: BP 152/90
--- NOTE | 2020-08-01 08:27 | NUR ---
Pain Clinic Assessment: 1. History of Osteoarthritis: SPINAL History of Rheumatoid Arthritis: DENIES 2. Height: 5 ft. 4 in. 162.6 cm. Weight: 197.4 lb. oz. 89.540 kg. Patient's BMI: 33.9 3. Vital Signs: BP: 152/90 Pulse: 115 Resp: 20 Temp: 02 Sat: 100 ECG Mon: 4. Pain Intensity: 4 TO 5 5. Fall Risk: Dizziness: N Needs help standing or walking: N Fallen in the last 3 months: N Fall risk comments: 6. Patient on Blood Thinner: None 7. History of Hypertension: Y 8. Opioid Therapy greater than 6 weeks: Y Opiate Contract Signed: 04/29/17 9. Risk Assessment Tool Provided: LOW RISK 10. Functional Assessment Tool: 11. Recreational Drug Use: Never Drug Type: Tobacco Use: Never Smoker Tobacco Type: Amount or Packs/day: How Many Years: Alcohol Use: No Frequency: Quant:
== END ==
LOC: PAIN 06:59
PROVIDERS: ATTEND Anesthesiology Pain Medicine
DX: G43.909 Migraine, unspecified, not intractable, without status migrainosus (principal); M54.5 Low back pain; M79.10 Myalgia, unspecified site; M08.90 Juvenile arthritis, unspecified, unspecified site; Z79.891 Long term (current) use of opiate analgesic; Z79.899 Other long term (current) drug therapy

== ENCOUNTER → 2020-10-24 | Outpatient (CLI) | payer OTHER ==
[~2020-10-24] VITALS: Ht 162.6 cm; Wt 90.8 kg
[2020-10-24 12:44] VITALS: BP 149/91
--- NOTE | 2020-10-24 13:11 | NUR ---
Pain Clinic Assessment: 1. History of Osteoarthritis: SPINAL History of Rheumatoid Arthritis: DENIES 2. Height: 5 ft. 4 in. 162.6 cm. Weight: 200.2 lb. oz. 90.810 kg. Patient's BMI: 34.3 3. Vital Signs: BP: 149/91 Pulse: 109 Resp: 14 Temp: 02 Sat: 100 ECG Mon: 4. Pain Intensity: 5 5. Fall Risk: Dizziness: N Needs help standing or walking: N Fallen in the last 3 months: N Fall risk comments: 6. Patient on Blood Thinner: None 7. History of Hypertension: Y 8. Opioid Therapy greater than 6 weeks: Y Opiate Contract Signed: 04/29/17 9. Risk Assessment Tool Provided: LOW RISK 10. Functional Assessment Tool: 11. Recreational Drug Use: Never Drug Type: Tobacco Use: Never Smoker Tobacco Type: Amount or Packs/day: How Many Years: Alcohol Use: No Frequency: Quant:
== END ==
LOC: PAIN 12:18
PROVIDERS: ATTEND Anesthesiology Pain Medicine
DX: G89.29 Other chronic pain (principal); M54.5 Low back pain; M08.88 Other juvenile arthritis, other specified site; Z79.899 Other long term (current) drug therapy; Z88.8 Allergy status to other drugs, medicaments and biological substances; Z98.890 Other specified postprocedural states

== ENCOUNTER → 2021-01-21 | Outpatient (CLI) | payer OTHER ==
[~2021-01-21] VITALS: Ht 162.6 cm; Wt 91.2 kg
[2021-01-21 12:35] VITALS: BP 133/91
--- NOTE | 2021-01-21 12:51 | NUR ---
Pain Clinic Assessment: 1. History of Osteoarthritis: SPINAL History of Rheumatoid Arthritis: DENIES 2. Height: 5 ft. 4 in. 162.6 cm. Weight: 201.0 lb. oz. 91.173 kg. Patient's BMI: 34.5 3. Vital Signs: BP: 133/91 Pulse: 116 Resp: 20 Temp: 02 Sat: 98 ECG Mon: 4. Pain Intensity: 4 5. Fall Risk: Dizziness: N Needs help standing or walking: N Fallen in the last 3 months: N Fall risk comments: 6. Patient on Blood Thinner: None 7. History of Hypertension: Y 8. Opioid Therapy greater than 6 weeks: Y Opiate Contract Signed: 04/29/17 9. Risk Assessment Tool Provided: LOW RISK 10. Functional Assessment Tool: 11. Recreational Drug Use: Never Drug Type: Tobacco Use: Never Smoker Tobacco Type: Amount or Packs/day: How Many Years: Alcohol Use: No Frequency: Quant:
== END ==
LOC: PAIN 10:50
PROVIDERS: ATTEND Clinical Nurse Specialist Adult Health
DX: M54.50 Low back pain, unspecified (principal); G43.909 Migraine, unspecified, not intractable, without status migrainosus; M79.604 Pain in right leg; M79.605 Pain in left leg; F34.89 Other specified persistent mood disorders; Z88.8 Allergy status to other drugs, medicaments and biological substances; Z79.899 Other long term (current) drug therapy

== ENCOUNTER → 2021-04-17 | Outpatient (CLI) | payer OTHER ==
[~2021-04-17] VITALS: Ht 162.6 cm; Wt 94.7 kg
[2021-04-17 08:49] VITALS: BP 149/91
--- NOTE | 2021-04-17 08:54 | NUR ---
Pain Clinic Assessment: 1. History of Osteoarthritis: SPINAL History of Rheumatoid Arthritis: DENIES 2. Height: 5 ft. 4 in. 162.6 cm. Weight: 208.8 lb. oz. 94.711 kg. Patient's BMI: 35.8 3. Vital Signs: BP: 149/91 Pulse: 116 Resp: 16 Temp: 02 Sat: 100 ECG Mon: 4. Pain Intensity: 5 5. Fall Risk: Dizziness: N Needs help standing or walking: N Fallen in the last 3 months: N Fall risk comments: 6. Patient on Blood Thinner: None 7. History of Hypertension: Y 8. Opioid Therapy greater than 6 weeks: Y Opiate Contract Signed: 04/29/17 9. Risk Assessment Tool Provided: LOW RISK 10. Functional Assessment Tool: 11. Recreational Drug Use: Never Drug Type: Tobacco Use: Never Smoker Tobacco Type: Amount or Packs/day: How Many Years: Alcohol Use: No Frequency: Quant:
== END ==
LOC: PAIN 08:09
PROVIDERS: ATTEND Clinical Nurse Specialist Adult Health
DX: G89.29 Other chronic pain (principal); G43.909 Migraine, unspecified, not intractable, without status migrainosus; M54.50 Low back pain, unspecified; M54.16 Radiculopathy, lumbar region; F34.9 Persistent mood [affective] disorder, unspecified; Z88.8 Allergy status to other drugs, medicaments and biological substances; Z79.899 Other long term (current) drug therapy